=== PATIENT | female | born 1965 | race Caucasian/White ===

== ENCOUNTER 2017-03-14 13:51 | Inpatient (IN) | payer MEDICAID ==
[2017-03-14] VITALS (8 sets, daily range): BP systolic 104–148; BP diastolic 70–104
[~2017-03-14] VITALS: Ht 175.3 cm; Wt 95.3 kg
[~2017-03-14 13:51] MED LIST: BETASERON0.3 MG SQ; NEURONTIN300 MG PO; OXYCONTIN20 MG PO; SOMA350 MG PO; TRAMADOL HCL50 MG PO
[2017-03-14] MEDS ORDERED: ACETAMINOPHEN325 M1 ORAL (14:02)
[2017-03-14] MEDS ORDERED: TYLENOL650 MG PR (14:02)
[2017-03-14] MEDS ORDERED: AMBIEN10 M1 ORAL (14:02)
[2017-03-14] MEDS ORDERED: AMITRIPTYLINE100 MG ORAL (14:08)
[2017-03-14] MEDS ORDERED: ATROPINE SULFATE 1% SL (14:08)
[2017-03-14] MEDS ORDERED: CRANBERRY400 MG PO (14:19)
[2017-03-14] MEDS ORDERED: BISACODYL5 MG ORAL (14:19)
[2017-03-14] MEDS ORDERED: COLACE100 MG ORAL (14:19)
[2017-03-14] MEDS ORDERED: DUONEB 0.5-3(2.53 ML HHN (14:19)
[2017-03-14] MEDS ORDERED: DURAGESIC1 E1 TOPIC (14:20)
[2017-03-14] MEDS ORDERED: GABAPENTIN300 MG ORAL (14:20)
[2017-03-14] MEDS ORDERED: FLEET ENEMA133 ML RECTAL (14:20)
[2017-03-14] MEDS ORDERED: LORAZEPAM0.5 MG ORAL (14:21)
[2017-03-14] MEDS ORDERED: LACTULOSE20 GM/301 ORAL (14:21)
[2017-03-14] MEDS ORDERED: PRO-STAT LIQUID30 ML ORAL (14:23)
[2017-03-14] MEDS ORDERED: OXYCODONE HCL10 MG ORAL (14:23)
[2017-03-14] MEDS ORDERED: MILK OF MA400 MG/51 ORAL (14:23)
[2017-03-14] MEDS ORDERED: VITAMIN C500 M1 ORAL (14:24)
[2017-03-14] MEDS ORDERED: ZINC SULFATE220 M1 ORAL (14:24)
[2017-03-14] MEDS ORDERED: SENNA8.6 M2 PO (14:24)
[2017-03-14] MEDS ORDERED: ZOFRAN ODT4 MG ORAL (14:25)
[2017-03-14] MEDS ORDERED: Lidocaine 1% Plain 30 ml INJ ONE (15:00)
[2017-03-14] MEDS ORDERED: Heparin 2000 units/Ns 1000ml IV ONE (15:00)
--- NOTE | 2017-03-14 15:53 | Emergency Room Report ---
History of Present Illness General Chief Complaint: Abdominal Pain Source: Patient, Medical Record Present Illness HPI This patient presents from a half-way facility. She complains of left sided abdominal pain for the past 2 days. She states that she is also had multiple bowel movements. She denies that it is diarrhea. She denies dysuria. She has no other complaints. Allergies: Coded Allergies: SULFA (SULFONAMIDE ANTIBIOTICS) (Verified Allergy, Intermediate, 03/14/17) MORPHINE (Verified Adverse Reaction, Intermediate, GI UPSET AND SHAKES, 17/08) Uncoded Allergies: PAIN KILLER (Allergy, Mild, 06/17/12) CANNOT REMEMBER NAME OF PAIN KILLER Patient History Past Medical History: see triage record, GERD, psych hx, other - MS Social History: Denies: alcohol use, drug use, smoking Now: No Reviewed Nursing Documentation: PMH: Agreed, PSxH: Agreed Nursing Documentation-PMH Past Medical History Deferred: Pt Cognitively Impaired Past Medical History: No History, Except For Hx Cardiac Problems: No Hx Hypertension: No Hx Pacemaker: No Hx COPD: No Hx Diabetes: No Hx Cancer: No Hx Gastrointestinal Problems: Yes - Gastro - esophageal reflux Hx Neurological Problems: Yes - MS, Low Back pain Hx Cerebrovascular Accident: No Hx Seizures: No Review of Systems All Other Systems: negative except mentioned in HPI Physical Exam Vital Signs Date Time Temp Pulse Resp B/P Pulse Ox O2 Delivery O2 Flow Rate FiO2 03/14/17 13:39 97.9 78 16 128/70 98 Sp02 EP Interpretation: reviewed, normal General Appearance: no apparent distress, alert, GCS 15, non-toxic Head: normocephalic, atraumatic Eyes: bilateral eye PERRL, bilateral eye normal inspection ENT: hearing grossly normal, normal pharynx, no angioedema, normal voice Neck: full range of motion, supple/symm/no masses Respiratory: chest non-tender, lungs clear, normal breath sounds, speaking full sentences Cardiovascular #1: regular rate, rhythm, no edema Gastrointestinal: normal bowel sounds, soft, non-distended, no guarding, no rebound, tenderness - TTP diffusely LLQ greatest Rectal: deferred Musculoskeletal: back normal, gait/station normal, normal range of motion, non- tender Neurologic: alert, oriented x3, responsive, motor strength/tone normal, sensory intact, speech normal Psychiatric: judgement/insight normal, memory normal, mood/affect normal, no suicidal/homicidal ideation Skin: other - Sacral DU, see RN skin exam Medical Decision Making Diagnostic Impression: Primary Impression: Osteomyelitis Additional Impressions: Sacral decubitus ulcer UTI (urinary tract infection) ER Course This patient complained of abdominal pain. Therefore, I obtained a CT of the abdomen and pelvis which showed findings concerning for a sacral decubitus ulcer that had a. Into the sacrum and coccyx concerning for osteomyelitis. The patient also does not have a urinary tract infection. Patient was given broad-spectrum antibiotics and admitted for further evaluation and treatment. Labs Test 03/14/17 16:10 White Blood Count 13.8 K/UL (4.8-10.8) Red Blood Count 4.78 M/UL (4.20-5.40) Hemoglobin 12.7 G/DL (12.0-16.0) Hematocrit 40.0 % (37.0-47.0) Mean Corpuscular Volume 84 FL (80-99) Mean Corpuscular Hemoglobin 26.6 PG (27.0-31.0) Mean Corpuscular Hemoglobin Concent 31.8 G/DL (32.0-36.0) Red Cell Distribution Width 14.7 % (11.6-14.8) Platelet Count 442 K/UL (150-450) Mean Platelet Volume 6.1 FL (6.5-10.1) Neutrophils (%) (Auto) 77.1 % (45.0-75.0) Lymphocytes (%) (Auto) 13.6 % (20.0-45.0) Monocytes (%) (Auto) 6.3 % (1.0-10.0) Eosinophils (%) (Auto) 2.4 % (0.0-3.0) Basophils (%) (Auto) 0.6 % (0.0-2.0) Urine Color Pale yellow Urine Appearance Clear Urine pH 8 (4.5-8.0) Urine Specific [place] 1.015 (1.005-1.035) Urine Protein 1+ (NEGATIVE) Urine Glucose (UA) Negative (NEGATIVE) Urine Ketones 3+ (NEGATIVE) Urine Occult Blood 2+ (NEGATIVE) Urine Nitrite Positive (NEGATIVE) Urine Bilirubin Negative (NEGATIVE) Urine Urobilinogen Normal MG/DL (0.0-1.0) Urine Leukocyte Esterase 3+ (NEGATIVE) Urine RBC 2-4 /HPF (0 - 2) Urine WBC 5-10 /HPF (0 - 2) Urine Squamous Epithelial Cells Few /LPF (NONE/OCC) Urine Amorphous Sediment Few /LPF (NONE) Urine Bacteria Few /HPF (NONE) Sodium Level 139 mEQ/L (135-145) Potassium Level 4.0 mEQ/L (3.4-4.9) Chloride Level 101 mEQ/L (98-107) Carbon Dioxide Level 26 mEQ/L (20-30) Anion Gap 12 (5-15) Blood Urea Nitrogen 5 mg/dL (7-23) Creatinine 0.5 mg/dL (0.5-0.9) Estimat Glomerular Filtration Rate > 60 mL/min (>60) Glucose Level 98 mg/dL (74-106) Calcium Level 9.0 mg/dL (8.6-10.2) Total Bilirubin 0.2 mg/dL (0.0-1.2) Aspartate Amino Transf (AST/SGOT) 9 U/L (5-40) Alanine Aminotransferase (ALT/SGPT) 6 U/L (3-33) Alkaline Phosphatase 115 U/L (35-104) Total Protein 7.0 g/dL (6.6-8.7) Albumin 3.3 g/dL (3.5-5.2) Globulin 3.7 g/dL Albumin/Globulin Ratio 0.8 (1.0-2.7) Lipase 11 U/L (< 60) CT/MRI/US Diagnostic Results CT/MRI/US Diagnostic Results : Imaging Test Ordered: CT abd/pelvis Impression See official report. Findings concerning for osteomyelitis of the sacrum and coccyx. Last Vital Signs Date Time Temp Pulse Resp B/P Pulse Ox O2 Delivery O2 Flow Rate FiO2 03/14/17 13:54 97.9 78 16 128/70 98 Disposition: ADMITTED INPATIENT Condition: Serious Referrals: NON PHYSICIAN (PCP) OPAL LOERA D.O. Mar 14, 2017 15:53
--- NOTE | 2017-03-14 16:21 | Diagnostic Imaging Report ---
Indications: Needs long-term IV access Technique: Ultrasound confirms patent compressible right basilic vein. Total sterile technique, including sterile probe cover and sterile gel, hat, mask,, sterile gown, large sterile drape, and preparation with 2% chlorhexidine utilized. Local anesthesia with 1% lidocaine. Under real-time ultrasound guidance, puncture basilic vein using 21-gauge needle, documented and archived, passage 0.018 guidewire under direct fluoroscopy, which was used to determine appropriate catheter right arm length, exchange for 5 Welsh peel-away sheath. 5 Welsh Bard dual-lumen power PICC cut to 41 cm. It was inserted through the peel-away sheath. Peel-away sheath and guidewire removed. Catheter fixed to the skin. Both catheter ports aspirated and flushed. Patient tolerated procedure well, without immediate complication. Digital radiograph documents satisfactory catheter tip position, at the cavoatrial junction. Total fluoroscopy time 0.3 minutes. Total dose area product 8.7 dGycm2 Impression: Successful placement of right arm PICC under sonographic and fluoroscopic guidance, as described above.
[2017-03-14 16:39] LABS: APPEARANCE,URINE CLEAR; KETONES,URINE 3+ (NEGATIVE); LEUKOCYTE ESTERASE ,URINE 3+ (NEGATIVE); NITRITE,URINE POSITIVE (NEGATIVE); PH,URINE 8 (4.5-8.0); PROTEIN,URINE 1+ (NEGATIVE); UROBILINOGEN,URINE NORMAL MG/DL (0.0-1.0)
[2017-03-14 16:46] LABS: BASOPHILS % (AUTO) 0.6 % (0.0-2.0); EOSINOPHILS % (AUTO) 2.4 % (0.0-3.0); LYMPHOCYTES % (AUTO) 13.6 % (20.0-45.0); MEAN CORPUSCULAR HEMOGLOBIN 26.6 PG (27.0-31.0); MEAN CORPUSCULAR HGB CONC 31.8 G/DL (32.0-36.0); MEAN CORPUSCULAR VOLUME 84 FL (80-99); MEAN PLATELET VOLUME 6.1 FL (6.5-10.1); MONOCYTES % (AUTO) 6.3 % (1.0-10.0); NEUTROPHILS % (AUTO) 77.1 % (45.0-75.0); PLATELET COUNT 442 K/UL (150-450); RED BLOOD COUNT 4.78 M/UL (4.20-5.40); RED CELL DISTRIBUTION WIDTH 14.7 % (11.6-14.8); WHITE BLOOD COUNT 13.8 K/UL (4.8-10.8)
[2017-03-14 16:55] LABS: ALANINE AMINOTRANSFERASE 6 U/L (3-33); ALBUMIN/GLOBULIN RATIO 0.8 (1.0-2.7); ANION GAP 12 (5-15); ASPARTATE AMINO TRANSFERASE 9 U/L (5-40); CARBON DIOXIDE 26 mEQ/L (20-30); CHLORIDE 101 mEQ/L (98-107); CREATININE 0.5 mg/dL (0.5-0.9); GLOMERULAR FILTRATION RATE > 60 mL/min (>60); HEMOLYSIS 0; LIPASE 11 U/L (< 60); SODIUM 139 mEQ/L (135-145)
[2017-03-14 17:00] LABS: AMORPHOUS SEDIMENT,UR FEW /LPF; BACTERIA,URINE FEW /HPF; SQUAMOUS EPITHELIAL CELL,UR FEW /LPF (NONE/OCC)
[2017-03-14] MEDS ORDERED: cefTRIAXone 1 GM in NS 55 ML IVPB ONE (17:45)
[2017-03-14] MEDS ORDERED: Acetaminophen 500mg (ES) tab ORAL ONE (18:00)
[2017-03-14] MEDS ORDERED: Vancomycin 1gm inj IVPB ONE (18:22)
[2017-03-14] MEDS ORDERED: Vancomycin 1 GM in NS 275 ML IVPB ONE (18:30)
[2017-03-14] MEDS ORDERED: Nitroglycerin Subl 0.4mg tab (Bottle Of 25) SL PRN (19:30)
[2017-03-14] MEDS ORDERED: DuoNeb 0.5-3(2.5)mg/3ml neb HHN PRN (19:30)
[2017-03-14] MEDS ORDERED: Miralax 17gm pkt ORAL PRN (19:30)
[2017-03-14] MEDS ORDERED: traMADol 50mg tab ORAL SCH (19:30)
[2017-03-14] MEDS ORDERED: LORazepam 0.5mg tab ORAL PRN (20:30)
[2017-03-14] MEDS ORDERED: Naloxone 0.4mg/ml Inj IV PRN (22:00)
[2017-03-14] MEDS: Heparin 5000 units/ml inj SUBQ SCH (22:15)
--- NOTE | 2017-03-14 23:42 | History and Physical ---
History of Present Illness General Date patient seen: Mar 14, 2017 Reason for Hospitalization: Abdominal Pain Present Illness HPI 51 year old female with hx of multiple sclerosis for 7 years, [facility], [facility], presented with CC of of left sided abdominal pain for the past 2 days. She states that she is also had multiple bowel movements. She denies that it is diarrhea. She denies dysuria. She has no other complaints. She was found to have extensive decubiti ulcers and possibly be septic. Allergies: Coded Allergies: SULFA (SULFONAMIDE ANTIBIOTICS) (Verified Allergy, Intermediate, 03/14/17) MORPHINE (Verified Adverse Reaction, Intermediate, GI UPSET AND SHAKES, 17/08) Uncoded Allergies: PAIN KILLER (Allergy, Mild, 06/17/12) CANNOT REMEMBER NAME OF PAIN KILLER Medication History Scheduled Amino Acids/Protein Hydrolys (Pro-Stat Liquid), 30 ML ORAL DAILY, (Reported) Amitriptyline HCl (Amitriptyline HCl), 50 MG ORAL BEDTIME, (Reported) Ascorbic Acid* (Vitamin C*), 500 MG ORAL DAILY, (Reported) Carisoprodol* (Soma*), 350 MG PO BID, (Reported) Cranberry (Cranberry), 450 MG PO DAILY, (Reported) Docusate Sodium* (Colace*), 250 MG ORAL TWICE A DAY, (Reported) Fentanyl (Fentanyl), 1 PATCH TOPIC EVERY 72 HOURS, (Reported) Gabapentin (Neurontin), 300 MG PO TID, (Reported) Gabapentin* (Gabapentin*), 300 MG ORAL THREE TIMES A DAY, (Reported) Interferon Beta-1B (Betaseron), MG SQ QOD, (Reported) Lactulose (Lactulose*), 30 ML ORAL DAILY, (Reported) Oxycodone Hcl Er* (Oxycontin*), 20 MG PO QID, (Reported) Sennosides (Senna), 8.6 MG PO BID, (Reported) Tramadol Hcl* (Ultram*), 50 MG PO Q6H, (Reported) Zinc Sulfate (Zinc Sulfate*), 220 MG ORAL DAILY, (Reported) Scheduled PRN Acetaminophen (Acetaminophen), 650 MG OK Q4HR PRN for Fever/Headache/Mild Pain, (Reported) Acetaminophen* (Acetaminophen 325MG Tablet*), 650 MG ORAL Q8HR PRN for Pain Scale (3-5), (Reported) Bisacodyl* (Dulcolax*), 10 MG ORAL EVERY 24 HOUR PRN for Constipation, (Reported ) Ipratropium/Albuterol Sulfate (DuoNeb 0.5-3(2.5)mg/3ml), 3 ML HHN EVERY 6 HOURS PRN for Shortness of Breath, (Reported) Lorazepam* (Lorazepam*), 0.5 MG ORAL EVERY 6 HOURS PRN for For Anxiety, ( Reported) Magnesium Hydroxide* (Milk Of Magnesia*), 30 ML ORAL DAILY PRN for Constipation, (Reported) Na Phos,M-B/Na Phos,Di-Ba* (Fleet Enema*), 133 ML RECTAL DAILY PRN for CONSTIPATION, (Reported) Ondansetron Odt* (Zofran Odt*), 4 MG ORAL Q6H PRN for Nausea & Vomiting, ( Reported) Oxycodone Hcl* (Oxycodone Hcl*), 20 MG ORAL Q6HR PRN for For Pain, (Reported) Zolpidem Tartrate* (Ambien*), 10 MG ORAL HS PRN for Insomnia, (Reported) [Atropine sulfate 1%], 2 DROP SL EVERY 3 HOURS PRN for Mild to moderate , ( Reported) Patient History Healthcare decision maker Resuscitation status Full Code Advanced Directive on File Past Medical/Surgical History Past Medical/Surgical History: (1) Sacral decubitus ulcer (2) Osteomyelitis Review of Systems All Other Systems: negative except mentioned in HPI Physical Exam General Appearance: WD/WN, no apparent distress Lines, tubes and drains: peripheral, central line HEENT: normocephalic, atraumatic Neck: non-tender, normal alignment Respiratory/Chest: chest wall non-tender, lungs clear Breasts: no masses Cardiovascular/Chest: normal peripheral pulses Abdomen: normal bowel sounds Genitourinary/Rectal: normal genital exam Extremities: normal range of motion Last 24 Hour Vital Signs Date Time Temp Pulse Resp B/P Pulse Ox O2 Delivery O2 Flow Rate FiO2 03/14/17 23:36 97.7 98 19 119/85 98 Room Air 03/14/17 22:50 97.7 03/14/17 21:26 97.7 94 20 104/71 100 Room Air 03/14/17 20:02 97.9 87 18 131/77 96 Room Air 03/14/17 19:30 87 18 131/77 96 Room Air 03/14/17 18:38 97.9 03/14/17 18:30 87 18 130/75 96 Room Air 03/14/17 17:30 98 15 124/104 94 Room Air 03/14/17 16:30 97 17 148/71 99 Room Air 03/14/17 14:30 88 18 111/85 97 Room Air 03/14/17 13:54 97.9 78 16 128/70 98 03/14/17 13:39 97.9 78 16 128/70 98 Laboratory Tests Test 03/14/17 16:10 White Blood Count 13.8 K/UL (4.8-10.8) H Red Blood Count 4.78 M/UL (4.20-5.40) Hemoglobin 12.7 G/DL (12.0-16.0) Hematocrit 40.0 % (37.0-47.0) Mean Corpuscular Volume 84 FL (80-99) Mean Corpuscular Hemoglobin 26.6 PG (27.0-31.0) L Mean Corpuscular Hemoglobin Concent 31.8 G/DL (32.0-36.0) L Red Cell Distribution Width 14.7 % (11.6-14.8) Platelet Count 442 K/UL (150-450) Mean Platelet Volume 6.1 FL (6.5-10.1) L Neutrophils (%) (Auto) 77.1 % (45.0-75.0) H Lymphocytes (%) (Auto) 13.6 % (20.0-45.0) L Monocytes (%) (Auto) 6.3 % (1.0-10.0) Eosinophils (%) (Auto) 2.4 % (0.0-3.0) Basophils (%) (Auto) 0.6 % (0.0-2.0) Urine Color Pale yellow Urine Appearance Clear Urine pH 8 (4.5-8.0) Urine Specific [place] 1.015 (1.005-1.035) Urine Protein 1+ (NEGATIVE) H Urine Glucose (UA) Negative (NEGATIVE) Urine Ketones 3+ (NEGATIVE) H Urine Occult Blood 2+ (NEGATIVE) H Urine Nitrite Positive (NEGATIVE) H Urine Bilirubin Negative (NEGATIVE) Urine Urobilinogen Normal MG/DL (0.0-1.0) Urine Leukocyte Esterase 3+ (NEGATIVE) H Urine RBC 2-4 /HPF (0 - 2) H Urine WBC 5-10 /HPF (0 - 2) H Urine Squamous Epithelial Cells Few /LPF (NONE/OCC) Urine Amorphous Sediment Few /LPF (NONE) H Urine Bacteria Few /HPF (NONE) Sodium Level 139 mEQ/L (135-145) Potassium Level 4.0 mEQ/L (3.4-4.9) Chloride Level 101 mEQ/L (98-107) Carbon Dioxide Level 26 mEQ/L (20-30) Anion Gap 12 (5-15) Blood Urea Nitrogen 5 mg/dL (7-23) L Creatinine 0.5 mg/dL (0.5-0.9) Estimat Glomerular Filtration Rate > 60 mL/min (>60) Glucose Level 98 mg/dL (74-106) Calcium Level 9.0 mg/dL (8.6-10.2) Total Bilirubin 0.2 mg/dL (0.0-1.2) Aspartate Amino Transf (AST/SGOT) 9 U/L (5-40) Alanine Aminotransferase (ALT/SGPT) 6 U/L (3-33) Alkaline Phosphatase 115 U/L (35-104) H Total Protein 7.0 g/dL (6.6-8.7) Albumin 3.3 g/dL (3.5-5.2) L Globulin 3.7 g/dL Albumin/Globulin Ratio 0.8 (1.0-2.7) L Lipase 11 U/L (< 60) Height (Feet): 5 Height (Inches): 9.00 Weight (Pounds): 210 Medications Current Medications Medications (Trade) Dose Ordered Sig/Tatiana Route PRN Reason Start Time Stop Time Status Last Admin Dose Admin Acetaminophen (Tylenol) 650 mg Q4H PRN ORAL fever 03/14/17 19:30 04/13/17 19:29 Albuterol/ Ipratropium (DuoNeb 0.5-3(2.5)mg/3ml) 3 ml Q4H PRN HHN Shortness of Breath 03/14/17 19:30 03/19/17 19:29 Amitriptyline HCl (Elavil) 50 mg BEDTIME ORAL 03/14/17 21:00 04/13/17 20:59 03/14/17 22:14 Cefepime HCl/ Dextrose (Maxipime/D5W) 110 ml @ 220 mls/hr Q12H IV 03/15/17 06:00 03/22/17 05:59 Chlorhexidine Gluconate (Tamy-Hex 2%) 1 applic DAILY TOPIC 03/15/17 09:00 04/14/17 08:59 Dextrose (Dextrose 50%) STAT PRN IV Hypoglycemia 03/14/17 19:30 04/13/17 19:29 Fentanyl (Duragesic) 1 patch Q72H TDERMAL 03/14/17 22:00 03/21/17 21:59 03/14/17 22:20 Gabapentin (Neurontin) 300 mg TID ORAL 03/14/17 21:00 04/13/17 20:59 03/14/17 22:14 Heparin Sodium (Porcine) 5000 units 5,000 units EVERY 12 HOURS SUBQ 03/14/17 21:00 04/13/17 20:59 03/14/17 22:15 Lorazepam (Ativan) 0.5 mg Q6H PRN ORAL For Anxiety 03/14/17 20:30 03/21/17 20:29 Miscellaneous Medication 1 ea 1 ea Q72H MISC 03/17/17 22:00 03/21/17 21:59 Naloxone HCl (Narcan) 0.1 mg PRN IV Sedation scale 3 or 4 03/14/17 22:00 03/21/17 21:59 Nitroglycerin (Ntg) 0.4 mg Q5MIN PRN SL Prn Chest Pain 03/14/17 19:30 04/13/17 19:29 Ondansetron HCl (Zofran) 4 mg Q6H PRN IVP Nausea & Vomiting 03/14/17 19:30 04/13/17 19:29 Oxycodone HCl (Roxicodone) 20 mg Q6H PRN ORAL For Breakthrough Pain 03/14/17 19:30 03/21/17 19:29 Polyethylene Glycol (Miralax) 17 gm DAILYPRN PRN ORAL Constipation 03/14/17 19:30 04/13/17 19:29 Temazepam (Restoril) 15 mg HSPRN PRN ORAL Insomnia 03/14/17 19:30 03/21/17 19:29 Vancomycin HCl (Vanco rx to dose) 1 ea DAILY PRN MISC PRN RX PROTOCOL 03/14/17 22:00 04/13/17 21:59 Vancomycin HCl/ Dextrose (Vancomycin 1250mg/D5W 250ml) 250 ml @ 166.667 mls/hr Q8HR@0200,1000,1800 IVPB 03/15/17 02:00 03/20/17 01:59 Assessment/Plan Problem List: (1) Cellulitis ICD Codes: L03.90 - Cellulitis, unspecified SNOMED: 585236271 (2) UTI (urinary tract infection) ICD Codes: N39.0 - Urinary tract infection, site not specified SNOMED: 83354695 (3) Osteomyelitis ICD Codes: M86.9 - Osteomyelitis, unspecified SNOMED: 75485340 (4) Sacral decubitus ulcer ICD Codes: L89.159 - Pressure ulcer of sacral region, unspecified stage SNOMED: 127621150 Assessment/Plan iv antibiotics check cultures wound care surgical evaluation NIKIA CAMPBELL Mar 14, 2017 23:42
[2017-03-15] MEDS ORDERED: Vancomycin 1 GM in D5W 275 ML IV SCH (00:30)
[2017-03-15] MEDS: Vancomycin 1250mg/D5W 250ml IVPB SCH ×3 (01:02→20:36)
[2017-03-15 03:20] VITALS: BP 109/71
[2017-03-15 04:56] LABS: BASOPHILS % (AUTO) 0.7 % (0.0-2.0); EOSINOPHILS % (AUTO) 3.7 % (0.0-3.0); LYMPHOCYTES % (AUTO) 20.8 % (20.0-45.0); MEAN CORPUSCULAR HEMOGLOBIN 26.6 PG (27.0-31.0); MEAN CORPUSCULAR HGB CONC 32.5 G/DL (32.0-36.0); MEAN CORPUSCULAR VOLUME 82 FL (80-99); MEAN PLATELET VOLUME 5.8 FL (6.5-10.1); MONOCYTES % (AUTO) 7.3 % (1.0-10.0); NEUTROPHILS % (AUTO) 67.5 % (45.0-75.0); PLATELET COUNT 425 K/UL (150-450); RED BLOOD COUNT 4.49 M/UL (4.20-5.40); RED CELL DISTRIBUTION WIDTH 14.3 % (11.6-14.8); WHITE BLOOD COUNT 10.4 K/UL (4.8-10.8)
[2017-03-15 05:00] LABS: ALANINE AMINOTRANSFERASE 5 U/L (3-33); ALBUMIN/GLOBULIN RATIO 0.7 (1.0-2.7); ANION GAP 12 (5-15); ASPARTATE AMINO TRANSFERASE 8 U/L (5-40); CALCIUM 7.2 mg/dL (8.6-10.2); CARBON DIOXIDE 21 mEQ/L (20-30); CHLORIDE 109 mEQ/L (98-107); CREATININE 0.3 mg/dL (0.5-0.9); GLOMERULAR FILTRATION RATE > 60 mL/min (>60); HEMOLYSIS 0; POTASSIUM 3.3 mEQ/L (3.4-4.9); SODIUM 142 mEQ/L (135-145); TOTAL PROTEIN 5.7 g/dL (6.6-8.7)
[2017-03-15] MEDS: Cefepime HCl 2 GM in D5W 110 ML IV SCH ×2 (05:01→18:38)
[2017-03-15 08:15] VITALS: BP 109/66
[2017-03-15] MEDS: Dyna-Hex 2% Top Sol 8oz TOPIC SCH (08:53)
[2017-03-15] MEDS: Heparin 5000 units/ml inj SUBQ SCH (08:55)
[2017-03-15] MEDS: oxyCODONE 5mg IR tab ORAL PRN ×2 (09:18→19:44)
--- NOTE | 2017-03-15 09:24 | Diagnostic Imaging Report ---
Clinical Indication: Abdominal pain Technique: No oral contrast utilized, per emergency room physician request IV administration nonionic contrast. Venous phase spiral acquisition obtained through the abdomen and pelvis. Multiplanar reconstructions were generated. Total dose length product 994 mGycm. CTDIvol(s) 19 mGy. Dose reduction achieved using automated exposure control Comparison: 19 Findings: The appendix is normal. The no evidence of diverticulosis or diverticulitis. No small bowel distention. No free or loculated intraperitoneal air or fluid. Distal esophagus, stomach, duodenum are unremarkable. There are decubitus changes of the retrocecal region, with a large ulcer present. There is considerable soft tissue thickening. There is suggestion of bony destruction of the sacrococcygeal junction. Gallbladder is surgically absent. The liver, bile ducts, pancreas, spleen, adrenals, right kidney are unremarkable. The left kidney demonstrates a subcentimeter low-attenuation lesion which is too small to characterize. No pelvic mass or adenopathy. There is a Ramirez catheter within the bladder, which is nondistended. Air within the bladder is likely related to the Ramirez catheterization. The included lung bases are clear. The bones demonstrate degenerative spondylosis changes, in addition to the above-described abnormalities. Impression: Findings consistent with decubitus ulceration of the retrosacral region. Evidence of bone destruction in the sacrococcygeal junction is suspicious for osteomyelitis. Consider MRI for further evaluation No acute intra-abdominal findings Evidence of prior cholecystectomy Subcentimeter left renal low-attenuation lesion, too small to characterize, most likely benign simple cyst. No further followup needed Other findings as noted, including Ramirez catheter, degenerative spondylosis This agrees with the preliminary interpretation provided overnight by Dr. Bonds The CT scanner at [facility] is accredited by the [employer] [place] and the scans are performed using protocols designed to limit radiation exposure to as low as reasonably achievable to attain images of sufficient resolution adequate for diagnostic evaluation.
[2017-03-15 11:54] VITALS: BP 123/89
--- NOTE | 2017-03-15 12:17 | Infectious Diseases Prog Note ---
Assessment/Plan Assessment/Plan ID consult dictated # [id number] Subjective Allergies: Coded Allergies: SULFA (SULFONAMIDE ANTIBIOTICS) (Verified Allergy, Intermediate, 03/14/17) MORPHINE (Verified Adverse Reaction, Intermediate, GI UPSET AND SHAKES, 17/08) Uncoded Allergies: PAIN KILLER (Allergy, Mild, 06/17/12) CANNOT REMEMBER NAME OF PAIN KILLER Objective Vital Signs Last 24 Hour Vital Signs Date Time Temp Pulse Resp B/P Pulse Ox O2 Delivery O2 Flow Rate FiO2 03/15/17 11:54 97.4 83 20 123/89 97 Room Air 03/15/17 08:15 97.9 98 20 109/66 97 Room Air 03/15/17 07:44 93 18 Room Air 21 03/15/17 03:20 96.3 108 20 109/71 98 Room Air 03/14/17 23:36 97.7 98 19 119/85 98 Room Air 03/14/17 22:50 97.7 03/14/17 21:26 97.7 94 20 104/71 100 Room Air 03/14/17 20:02 97.9 87 18 131/77 96 Room Air 03/14/17 19:30 87 18 131/77 96 Room Air 03/14/17 18:38 97.9 03/14/17 18:30 87 18 130/75 96 Room Air 03/14/17 17:30 98 15 124/104 94 Room Air 03/14/17 16:30 97 17 148/71 99 Room Air 03/14/17 14:30 88 18 111/85 97 Room Air 03/14/17 13:54 97.9 78 16 128/70 98 03/14/17 13:39 97.9 78 16 128/70 98 Height (Feet): 5 Height (Inches): 9.00 Weight (Pounds): 210 Laboratory Tests Test 03/14/17 16:10 03/15/17 04:00 White Blood Count 13.8 K/UL (4.8-10.8) H 10.4 K/UL (4.8-10.8) Red Blood Count 4.78 M/UL (4.20-5.40) 4.49 M/UL (4.20-5.40) Hemoglobin 12.7 G/DL (12.0-16.0) 12.0 G/DL (12.0-16.0) Hematocrit 40.0 % (37.0-47.0) 36.9 % (37.0-47.0) L Mean Corpuscular Volume 84 FL (80-99) 82 FL (80-99) Mean Corpuscular Hemoglobin 26.6 PG (27.0-31.0) L 26.6 PG (27.0-31.0) L Mean Corpuscular Hemoglobin Concent 31.8 G/DL (32.0-36.0) L 32.5 G/DL (32.0-36.0) Red Cell Distribution Width 14.7 % (11.6-14.8) 14.3 % (11.6-14.8) Platelet Count 442 K/UL (150-450) 425 K/UL (150-450) Mean Platelet Volume 6.1 FL (6.5-10.1) L 5.8 FL (6.5-10.1) L Neutrophils (%) (Auto) 77.1 % (45.0-75.0) H 67.5 % (45.0-75.0) Lymphocytes (%) (Auto) 13.6 % (20.0-45.0) L 20.8 % (20.0-45.0) Monocytes (%) (Auto) 6.3 % (1.0-10.0) 7.3 % (1.0-10.0) Eosinophils (%) (Auto) 2.4 % (0.0-3.0) 3.7 % (0.0-3.0) H Basophils (%) (Auto) 0.6 % (0.0-2.0) 0.7 % (0.0-2.0) Urine Color Pale yellow Urine Appearance Clear Urine pH 8 (4.5-8.0) Urine Specific [place] 1.015 (1.005-1.035) Urine Protein 1+ (NEGATIVE) H Urine Glucose (UA) Negative (NEGATIVE) Urine Ketones 3+ (NEGATIVE) H Urine Occult Blood 2+ (NEGATIVE) H Urine Nitrite Positive (NEGATIVE) H Urine Bilirubin Negative (NEGATIVE) Urine Urobilinogen Normal MG/DL (0.0-1.0) Urine Leukocyte Esterase 3+ (NEGATIVE) H Urine RBC 2-4 /HPF (0 - 2) H Urine WBC 5-10 /HPF (0 - 2) H Urine Squamous Epithelial Cells Few /LPF (NONE/OCC) Urine Amorphous Sediment Few /LPF (NONE) H Urine Bacteria Few /HPF (NONE) Sodium Level 139 mEQ/L (135-145) 142 mEQ/L (135-145) Potassium Level 4.0 mEQ/L (3.4-4.9) 3.3 mEQ/L (3.4-4.9) L Chloride Level 101 mEQ/L (98-107) 109 mEQ/L (98-107) H Carbon Dioxide Level 26 mEQ/L (20-30) 21 mEQ/L (20-30) Anion Gap 12 (5-15) 12 (5-15) Blood Urea Nitrogen 5 mg/dL (7-23) L 4 mg/dL (7-23) L Creatinine 0.5 mg/dL (0.5-0.9) 0.3 mg/dL (0.5-0.9) L Estimat Glomerular Filtration Rate > 60 mL/min (>60) > 60 mL/min (>60) Glucose Level 98 mg/dL (74-106) 93 mg/dL (74-106) Calcium Level 9.0 mg/dL (8.6-10.2) 7.2 mg/dL (8.6-10.2) L Total Bilirubin 0.2 mg/dL (0.0-1.2) 0.2 mg/dL (0.0-1.2) Aspartate Amino Transf (AST/SGOT) 9 U/L (5-40) 8 U/L (5-40) Alanine Aminotransferase (ALT/SGPT) 6 U/L (3-33) 5 U/L (3-33) Alkaline Phosphatase 115 U/L (35-104) H 93 U/L (35-104) Total Protein 7.0 g/dL (6.6-8.7) 5.7 g/dL (6.6-8.7) L Albumin 3.3 g/dL (3.5-5.2) L 2.5 g/dL (3.5-5.2) L Globulin 3.7 g/dL 3.2 g/dL Albumin/Globulin Ratio 0.8 (1.0-2.7) L 0.7 (1.0-2.7) L Lipase 11 U/L (< 60) Current Medications Medications (Trade) Dose Ordered Sig/Tatiana Route PRN Reason Start Time Stop Time Status Last Admin Dose Admin Acetaminophen (Tylenol) 650 mg Q4H PRN ORAL fever 03/14/17 19:30 04/13/17 19:29 03/15/17 05:07 Albuterol/ Ipratropium (DuoNeb 0.5-3(2.5)mg/3ml) 3 ml Q4H PRN HHN Shortness of Breath 03/14/17 19:30 03/19/17 19:29 Amitriptyline HCl (Elavil) 50 mg BEDTIME ORAL 03/14/17 21:00 04/13/17 20:59 03/14/17 22:14 Cefepime HCl/ Dextrose (Maxipime/D5W) 110 ml @ 220 mls/hr Q12H IV 03/15/17 06:00 03/22/17 05:59 03/15/17 05:01 Chlorhexidine Gluconate (Tamy-Hex 2%) 1 applic DAILY TOPIC 03/15/17 09:00 04/14/17 08:59 03/15/17 08:53 Dextrose (Dextrose 50%) STAT PRN IV Hypoglycemia 03/14/17 19:30 04/13/17 19:29 Fentanyl (Duragesic) 1 patch Q72H TDERMAL 03/14/17 22:00 03/21/17 21:59 03/14/17 22:20 Gabapentin (Neurontin) 300 mg TID ORAL 03/14/17 21:00 04/13/17 20:59 03/15/17 08:53 Heparin Sodium (Porcine) 5000 units 5,000 units EVERY 12 HOURS SUBQ 03/14/17 21:00 04/13/17 20:59 03/15/17 08:55 Lorazepam (Ativan) 0.5 mg Q6H PRN ORAL For Anxiety 03/14/17 20:30 03/21/17 20:29 Miscellaneous Medication 1 ea 1 ea Q72H MISC 03/17/17 22:00 03/21/17 21:59 Naloxone HCl (Narcan) 0.1 mg PRN IV Sedation scale 3 or 4 03/14/17 22:00 03/21/17 21:59 Nitroglycerin (Ntg) 0.4 mg Q5MIN PRN SL Prn Chest Pain 03/14/17 19:30 04/13/17 19:29 Ondansetron HCl (Zofran) 4 mg Q6H PRN IVP Nausea & Vomiting 03/14/17 19:30 04/13/17 19:29 Oxycodone HCl (Roxicodone) 20 mg Q6H PRN ORAL For Breakthrough Pain 03/14/17 19:30 03/21/17 19:29 03/15/17 09:18 Polyethylene Glycol (Miralax) 17 gm DAILYPRN PRN ORAL Constipation 03/14/17 19:30 04/13/17 19:29 Temazepam (Restoril) 15 mg HSPRN PRN ORAL Insomnia 03/14/17 19:30 03/21/17 19:29 Vancomycin HCl (Vanco rx to dose) 1 ea DAILY PRN MISC PRN RX PROTOCOL 03/14/17 22:00 04/13/17 21:59 Vancomycin HCl/ Dextrose (Vancomycin 1250mg/D5W 250ml) 250 ml @ 166.667 mls/hr Q8HR@0200,1000,1800 IVPB 03/15/17 02:00 03/20/17 01:59 03/15/17 11:36 ASAEL APARICIO Mar 15, 2017 12:17
--- NOTE | 2017-03-15 14:16 | Diagnostic Imaging Report ---
APPROVED REPORT CPT Code: 18528 Present Symptoms Lower Extremity Pain: Bilateral Comments: Limited compression tolerated due to pain. RIGHT LEG: Venous imaging reveals a patent deep venous system. There is no evidence of thrombus within the femoral, popliteal or tibial segments. The greater saphenous vein is also within normal limits. Doppler indicates normal spontaneous flow within these segments. LEFT LEG: Venous imaging reveals acute thrombus in the superficial femoral to popliteal veins. Imaging also reveals patency of the common femoral vein. The calf veins were not well visualized. The greater saphenous vein is also within normal limits. Doppler indicates normal spontaneous flow within these segments. RN was notified of abnormal results at 1030 hours.
--- NOTE | 2017-03-15 15:41 | Wound Care Consultation ---
Wound Assessment Wound Assessment : Wound Number: #1 Wound Present on Admission: Yes New Wound: No Status Change of Wound: No Wound Location Body Site Modif: mid Wound Location Body Site: sacral Wound Type: pressure ulcer Ishan Test: Does not Ishan Pressure Ulcer Stage: IV/unstageable Wound Thickness: Full Thickness Wound Length: 4.5 Wound Width: 6.5 Wound Depth: 2.5 Percent of Wound [place]/Red: 100 Wound Drainage Description: Serosanguineous Wound Drainage Amount: Copious Wound Drainage Odor: None/Absent Tissue Surrounding Wound: Macerated Wound General Appearance: Reddened, Draining, Bone Palpable Wound Comment #1 Sacral stage IV pressure ulcer #2 Left dorsal foot foot Hyperpigmented skin and dry scab Recommendation -Sacral stage IV pressure ulcer Cleanse with saline, pat dry, apply hydrogel to wound bed, apply calcium alginate, cover with Biatain silicone dressing daily and PRN soiled/dislodged -Keep clean and dry -Turn and reposition -Low air loss mattress -Optimize nutrition -Offload both heels -Heel protector on both heels -Assess and f/u accordingly for any changes ASHELY POTTS RN Mar 15, 2017 15:41
--- NOTE | 2017-03-15 16:06 | Pulmonology Progress Note ---
Assessment/Plan Problems: (1) Cellulitis (2) UTI (urinary tract infection) (3) Osteomyelitis (4) Sacral decubitus ulcer Assessment/Plan improving continue abx check cultures dvt, will start on heparin drip and coumadin Subjective ROS Limited/Unobtainable: No Constitutional: Reports: no symptoms HEENT: Repors: no symptoms Respiratory: Reports: no symptoms Cardiovascular: Reports: no symptoms Allergies: Coded Allergies: SULFA (SULFONAMIDE ANTIBIOTICS) (Verified Allergy, Intermediate, 03/14/17) MORPHINE (Verified Adverse Reaction, Intermediate, GI UPSET AND SHAKES, 17/08) Uncoded Allergies: PAIN KILLER (Allergy, Mild, 06/17/12) CANNOT REMEMBER NAME OF PAIN KILLER Objective Last 24 Hour Vital Signs Date Time Temp Pulse Resp B/P Pulse Ox O2 Delivery O2 Flow Rate FiO2 03/15/17 11:54 97.4 83 20 123/89 97 Room Air 03/15/17 08:15 97.9 98 20 109/66 97 Room Air 03/15/17 07:44 93 18 Room Air 21 03/15/17 03:20 96.3 108 20 109/71 98 Room Air 03/14/17 23:36 97.7 98 19 119/85 98 Room Air 03/14/17 22:50 97.7 03/14/17 21:26 97.7 94 20 104/71 100 Room Air 03/14/17 20:02 97.9 87 18 131/77 96 Room Air 03/14/17 19:30 87 18 131/77 96 Room Air 03/14/17 18:38 97.9 03/14/17 18:30 87 18 130/75 96 Room Air 03/14/17 17:30 98 15 124/104 94 Room Air 03/14/17 16:30 97 17 148/71 99 Room Air Intake and Output 03/14/17 03/15/17 19:00 07:00 Intake Total 1055 ml 325 ml Output Total 1700 ml Balance 1055 ml -1375 ml Intake Oral 50 ml IV Total 1055 ml 275 ml Output Urine Total 1700 ml General Appearance: WD/WN, no acute distress HEENT: atraumatic Respiratory/Chest: chest wall non-tender, lungs clear Breasts: no masses Cardiovascular: normal peripheral pulses Abdomen: normal bowel sounds, soft, non tender Genitourinary: normal external genitalia Extremities: no cyanosis Skin: no rash Laboratory Tests 03/14/17 16:10: White Blood Count 13.8H, Red Blood Count 4.78, Hemoglobin 12.7, Hematocrit 40.0 , Mean Corpuscular Volume 84, Mean Corpuscular Hemoglobin 26.6L, Mean Corpuscular Hemoglobin Concent 31.8L, Red Cell Distribution Width 14.7, Platelet Count 442, Mean Platelet Volume 6.1L, Neutrophils (%) (Auto) 77.1H, Lymphocytes (%) (Auto) 13.6L, Monocytes (%) (Auto) 6.3, Eosinophils (%) (Auto) 2.4, Basophils (%) (Auto) 0.6, Urine Color Pale yellow, Urine Appearance Clear, Urine pH 8, Urine Specific [place] 1.015, Urine Protein 1+H, Urine Glucose (UA) Negative, Urine Ketones 3+H, Urine Occult Blood 2+H, Urine Nitrite PositiveH, Urine Bilirubin Negative, Urine Urobilinogen Normal, Urine Leukocyte Esterase 3+ H, Urine RBC 2-4H, Urine WBC 5-10H, Urine Squamous Epithelial Cells Few, Urine Amorphous Sediment FewH, Urine Bacteria Few, Sodium Level 139, Potassium Level 4.0, Chloride Level 101, Carbon Dioxide Level 26, Anion Gap 12, Blood Urea Nitrogen 5L, Creatinine 0.5, Estimat Glomerular Filtration Rate > 60, Glucose Level 98, Calcium Level 9.0, Total Bilirubin 0.2, Aspartate Amino Transf (AST/ SGOT) 9, Alanine Aminotransferase (ALT/SGPT) 6, Alkaline Phosphatase 115H, Total Protein 7.0, Albumin 3.3L, Globulin 3.7, Albumin/Globulin Ratio 0.8L, Lipase 11 03/15/17 04:00: White Blood Count 10.4, Red Blood Count 4.49, Hemoglobin 12.0, Hematocrit 36.9L , Mean Corpuscular Volume 82, Mean Corpuscular Hemoglobin 26.6L, Mean Corpuscular Hemoglobin Concent 32.5, Red Cell Distribution Width 14.3, Platelet Count 425, Mean Platelet Volume 5.8L, Neutrophils (%) (Auto) 67.5, Lymphocytes ( %) (Auto) 20.8, Monocytes (%) (Auto) 7.3, Eosinophils (%) (Auto) 3.7H, Basophils (%) (Auto) 0.7, Sodium Level 142, Potassium Level 3.3L, Chloride Level 109H, Carbon Dioxide Level 21, Anion Gap 12, Blood Urea Nitrogen 4L, Creatinine 0.3L, Estimat Glomerular Filtration Rate > 60, Glucose Level 93, Calcium Level 7.2L, Total Bilirubin 0.2, Aspartate Amino Transf (AST/SGOT) 8, Alanine Aminotransferase (ALT/SGPT) 5, Alkaline Phosphatase 93, Total Protein 5.7L, Albumin 2.5L, Globulin 3.2, Albumin/Globulin Ratio 0.7L Current Medications Medications (Trade) Dose Ordered Sig/Tatiana Route PRN Reason Start Time Stop Time Status Last Admin Dose Admin Acetaminophen (Tylenol) 650 mg Q4H PRN ORAL fever 03/14/17 19:30 04/13/17 19:29 03/15/17 05:07 Albuterol/ Ipratropium (DuoNeb 0.5-3(2.5)mg/3ml) 3 ml Q4H PRN HHN Shortness of Breath 03/14/17 19:30 03/19/17 19:29 Amitriptyline HCl (Elavil) 50 mg BEDTIME ORAL 03/14/17 21:00 04/13/17 20:59 03/14/17 22:14 Cefepime HCl/ Dextrose (Maxipime/D5W) 110 ml @ 220 mls/hr Q12H IV 03/15/17 06:00 03/22/17 05:59 03/15/17 05:01 Chlorhexidine Gluconate (Tamy-Hex 2%) 1 applic DAILY TOPIC 03/15/17 09:00 04/14/17 08:59 03/15/17 08:53 Dextrose (Dextrose 50%) STAT PRN IV Hypoglycemia 03/14/17 19:30 04/13/17 19:29 Fentanyl (Duragesic) 1 patch Q72H TDERMAL 03/14/17 22:00 03/21/17 21:59 03/14/17 22:20 Gabapentin (Neurontin) 300 mg TID ORAL 03/14/17 21:00 04/13/17 20:59 03/15/17 15:10 Heparin Sodium (Porcine) 5000 units 5,000 units EVERY 12 HOURS SUBQ 03/14/17 21:00 04/13/17 20:59 03/15/17 08:55 Lorazepam (Ativan) 0.5 mg Q6H PRN ORAL For Anxiety 03/14/17 20:30 03/21/17 20:29 Miscellaneous Medication 1 ea 1 ea Q72H MISC 03/17/17 22:00 03/21/17 21:59 Naloxone HCl (Narcan) 0.1 mg PRN IV Sedation scale 3 or 4 03/14/17 22:00 03/21/17 21:59 Nitroglycerin (Ntg) 0.4 mg Q5MIN PRN SL Prn Chest Pain 03/14/17 19:30 04/13/17 19:29 Ondansetron HCl (Zofran) 4 mg Q6H PRN IVP Nausea & Vomiting 03/14/17 19:30 04/13/17 19:29 Oxycodone HCl (Roxicodone) 20 mg Q6H PRN ORAL For Breakthrough Pain 03/14/17 19:30 03/21/17 19:29 03/15/17 09:18 Polyethylene Glycol (Miralax) 17 gm DAILYPRN PRN ORAL Constipation 03/14/17 19:30 04/13/17 19:29 Temazepam (Restoril) 15 mg HSPRN PRN ORAL Insomnia 03/14/17 19:30 03/21/17 19:29 Vancomycin HCl (Vanco rx to dose) 1 ea DAILY PRN MISC PRN RX PROTOCOL 03/14/17 22:00 04/13/17 21:59 Vancomycin HCl/ Dextrose (Vancomycin 1250mg/D5W 250ml) 250 ml @ 166.667 mls/hr Q8HR@0200,1000,1800 IVPB 03/15/17 02:00 03/20/17 01:59 03/15/17 11:36 NIKIA CAMPBELL Mar 15, 2017 16:06
[2017-03-15] MEDS ORDERED: Heparin 5000 units/ml inj IV ONE (16:40)
[2017-03-15] MEDS ORDERED: Heparin 25,000u/D5W 500ml 500 ML IV SCH (16:41)
[2017-03-15 17:02] LABS: BASOPHILS % (AUTO) 1.1 % (0.0-2.0); EOSINOPHILS % (AUTO) 4.4 % (0.0-3.0); LYMPHOCYTES % (AUTO) 19.5 % (20.0-45.0); MEAN CORPUSCULAR HEMOGLOBIN 26.9 PG (27.0-31.0); MEAN CORPUSCULAR HGB CONC 32.4 G/DL (32.0-36.0); MEAN CORPUSCULAR VOLUME 83 FL (80-99); MEAN PLATELET VOLUME 5.8 FL (6.5-10.1); MONOCYTES % (AUTO) 6.4 % (1.0-10.0); NEUTROPHILS % (AUTO) 68.6 % (45.0-75.0); PLATELET COUNT 334 K/UL (150-450); RED BLOOD COUNT 4.31 M/UL (4.20-5.40); RED CELL DISTRIBUTION WIDTH 14.7 % (11.6-14.8); WHITE BLOOD COUNT 9.1 K/UL (4.8-10.8)
--- NOTE | 2017-03-15 17:46 | Consultation ---
DATE OF CONSULTATION: 03/15/2017 INFECTIOUS DISEASE CONSULTATION This consult is for coverage of Dr. Parks. CONSULTING PHYSICIAN: Braulio Zhou M.D. PRIMARY ATTENDING: Morena Jorgensen M.D. REASON FOR CONSULT: Sacral osteomyelitis. HISTORY OF PRESENT ILLNESS: This is a 51-year-old female, who is a [facility] resident, admitted yesterday, because of abdominal pain and also had back pain. A CT scan of the abdomen and pelvis showed osteomyelitis in sacrococcyx area. The patient states that she has a sacral wound for a while. She said that the wound has smelly discharge. She denies any fever or chills. PAST MEDICAL HISTORY: Multiple sclerosis. The patient however is bedbound, can use partially right arm. She has gastroesophageal reflux disease. MEDICATIONS: , cefepime, vancomycin, , amitriptyline, gabapentin, heparin, nitroglycerin, Zofran, Tylenol, MiraLax, and DuoNeb inhaler. ALLERGIES: Allergic to morphine and sulfa drugs. SOCIAL HISTORY: custodial resident patient in hospice care. She is DNR, DNI. REVIEW OF SYSTEMS: As history of present illness, the patient has no coughing. No nausea. No vomiting. She has chronic Ramirez catheter. Bedbound. PHYSICAL EXAMINATION: GENERAL APPEARANCE: She is in no acute distress, awake, alert, and oriented. VITAL SIGNS: Temperature 97.9 degrees, pulse 98, and blood pressure 109/66. HEAD AND NECK: [place] conjunctivae. Getting oxygen by nasal cannula. HEART: S1 and S2 are regular. LUNGS: Clear. ABDOMEN: Soft and nontender. EXTREMITIES: , paraplegia, and weakness in the arms more in the left side. She has PICC line in the right arm that was placed in the hospital. LABORATORY DATA: Sodium is 142, potassium 3.3, chloride 109, bicarbonate 21, BUN 4, creatinine is 0.3, and glucose 93. Albumin is 2.5. Urine showed WBC of 5 to 10, RBC 2 to 4, leukocyte esterase positive, and nitrite positive. CT scan of the abdomen showed decubitus ulcer in the sacral area with evidence of bone resection of sacrococcygeal junction, suspicious for osteomyelitis, evidence of free air, and cholecystectomy. IMPRESSION: Sacral osteomyelitis, secondary to stage 4 decubitus ulcer. The patient have pyuria, may have urinary tract infection. Venous duplex showed deep vein thrombosis of left leg. She had multiple sclerosis. RECOMMENDATION: We will continue with cefepime and vancomycin. We will follow up the cultures. The patient needs extensive wound care and evaluation by wound care team. At the end of my exam, I thank, Dr. Jorgensen, for involving me in the care of this patient. Braulio Zhou M.D. DR: KEITH JOB#: [id number] CC: KURT
--- NOTE | 2017-03-15 19:38 | Consultation ---
History of Present Illness General Date patient seen: Mar 15, 2017 Chief Complaint: Abdominal Pain Reason for Consultation: sacral decubitus ulcer Present Illness HPI 51F with past medical history as noted below currently in alf transfered for higher level of care after complaints of left sided abdominal pain for 2 days. States pain cramping and superficial from abdomen to flank. Normal BM's, no n/v/f/c, no GI findings on CT. Upon admission noted to have large sacral decubitus ulcer. Surgery called for evaluation. Allergies: Coded Allergies: SULFA (SULFONAMIDE ANTIBIOTICS) (Verified Allergy, Intermediate, 03/14/17) MORPHINE (Verified Adverse Reaction, Intermediate, GI UPSET AND SHAKES, 17/08) Uncoded Allergies: PAIN KILLER (Allergy, Mild, 06/17/12) CANNOT REMEMBER NAME OF PAIN KILLER Medication History Scheduled Amino Acids/Protein Hydrolys (Pro-Stat Liquid), 30 ML ORAL DAILY, (Reported) Amitriptyline HCl (Amitriptyline HCl), 50 MG ORAL BEDTIME, (Reported) Ascorbic Acid* (Vitamin C*), 500 MG ORAL DAILY, (Reported) Carisoprodol* (Soma*), 350 MG PO BID, (Reported) Cranberry (Cranberry), 450 MG PO DAILY, (Reported) Docusate Sodium* (Colace*), 250 MG ORAL TWICE A DAY, (Reported) Fentanyl (Fentanyl), 1 PATCH TOPIC EVERY 72 HOURS, (Reported) Gabapentin (Neurontin), 300 MG PO TID, (Reported) Gabapentin* (Gabapentin*), 300 MG ORAL THREE TIMES A DAY, (Reported) Interferon Beta-1B (Betaseron), MG SQ QOD, (Reported) Lactulose (Lactulose*), 30 ML ORAL DAILY, (Reported) Oxycodone Hcl Er* (Oxycontin*), 20 MG PO QID, (Reported) Sennosides (Senna), 8.6 MG PO BID, (Reported) Tramadol Hcl* (Ultram*), 50 MG PO Q6H, (Reported) Zinc Sulfate (Zinc Sulfate*), 220 MG ORAL DAILY, (Reported) Scheduled PRN Acetaminophen (Acetaminophen), 650 MG GA Q4HR PRN for Fever/Headache/Mild Pain, (Reported) Acetaminophen* (Acetaminophen 325MG Tablet*), 650 MG ORAL Q8HR PRN for Pain Scale (3-5), (Reported) Bisacodyl* (Dulcolax*), 10 MG ORAL EVERY 24 HOUR PRN for Constipation, (Reported ) Ipratropium/Albuterol Sulfate (DuoNeb 0.5-3(2.5)mg/3ml), 3 ML HHN EVERY 6 HOURS PRN for Shortness of Breath, (Reported) Lorazepam* (Lorazepam*), 0.5 MG ORAL EVERY 6 HOURS PRN for For Anxiety, ( Reported) Magnesium Hydroxide* (Milk Of Magnesia*), 30 ML ORAL DAILY PRN for Constipation, (Reported) Na Phos,M-B/Na Phos,Di-Ba* (Fleet Enema*), 133 ML RECTAL DAILY PRN for CONSTIPATION, (Reported) Ondansetron Odt* (Zofran Odt*), 4 MG ORAL Q6H PRN for Nausea & Vomiting, ( Reported) Oxycodone Hcl* (Oxycodone Hcl*), 20 MG ORAL Q6HR PRN for For Pain, (Reported) Zolpidem Tartrate* (Ambien*), 10 MG ORAL HS PRN for Insomnia, (Reported) [Atropine sulfate 1%], 2 DROP SL EVERY 3 HOURS PRN for Mild to moderate , ( Reported) Patient History History Provided By: Patient, Medical Record Healthcare decision maker Resuscitation status Full Code Advanced Directive on File Past Medical/Surgical History Past Medical/Surgical History: (1) UTI (urinary tract infection) (2) Osteomyelitis (3) Sacral decubitus ulcer (4) Cellulitis Review of Systems Constitutional: Denies: chills, fever, malaise, no symptoms, other, see HPI, sweats, weakness Eye: Denies: acuity changes, blurred vision, discharge, double vision, eye pain , no symptoms, nose congestion, nose pain, other, see HPI, tearing Cardiovascular: Denies: PND, chest pain, edema, no symptoms, other, palpitations, see HPI, syncope Gastrointestinal: Reports: abdominal pain Genitourinary: Denies: discharge, dysuria, frequency, hematuria, incontinence, no symptoms, other, pain, retention, see HPI, urgency, vag bleed/dc Musculoskeletal: Denies: back pain, gout, joint pain, joint swelling, muscle pain, muscle stiffness, no symptoms, other, see HPI Skin: Denies: change in color, change in hair/nails, dryness, lesions, no symptoms, other, rash, see HPI Psychiatric: Denies: HI, SI, anxiety, depressed feelings, emotional problems, hallucinations, no symptoms, other, prior hx, see HPI Neurological: Denies: dizziness, focal weakness, headache, no symptoms, numbness, other, paresthesia, see HPI, seizure, syncope, tingling, tremors Endocrine: Denies: excessive sweating, flushing, increased thirst, increased urine, intolerance to temperature, no symptoms, other, see HPI, unexplained weight loss Hematologic/Lymphatic: Denies: anemia, blood clots, diathesis, easy bleeding, easy bruising, no symptoms, other, see HPI, swollen glands Physical Exam General Appearance: no apparent distress, alert HEENT: mucous membranes moist, PERRL Neck: normal inspection Respiratory/Chest: normal breath sounds, no respiratory distress, no accessory muscle use Cardiovascular/Chest: normal peripheral pulses, normal rate Abdomen: normal bowel sounds, soft, no organomegaly, no mass, tender Extremities: other - limited motion Neurologic: alert, oriented x 3 - 5cm x 6cm deep stage IV sacral decubitus with good granulation tissue Last 24 Hour Vital Signs Date Time Temp Pulse Resp B/P Pulse Ox O2 Delivery O2 Flow Rate FiO2 03/15/17 11:54 97.4 83 20 123/89 97 Room Air 03/15/17 08:15 97.9 98 20 109/66 97 Room Air 03/15/17 07:44 93 18 Room Air 21 03/15/17 03:20 96.3 108 20 109/71 98 Room Air 03/14/17 23:36 97.7 98 19 119/85 98 Room Air 03/14/17 22:50 97.7 03/14/17 21:26 97.7 94 20 104/71 100 Room Air 03/14/17 20:02 97.9 87 18 131/77 96 Room Air Intake and Output 03/14/17 03/15/17 19:00 07:00 Intake Total 1055 ml 325 ml Output Total 1700 ml Balance 1055 ml -1375 ml Intake Oral 50 ml IV Total 1055 ml 275 ml Output Urine Total 1700 ml Laboratory Tests Test 03/15/17 04:00 03/15/17 16:40 White Blood Count 10.4 K/UL (4.8-10.8) 9.1 K/UL (4.8-10.8) Red Blood Count 4.49 M/UL (4.20-5.40) 4.31 M/UL (4.20-5.40) Hemoglobin 12.0 G/DL (12.0-16.0) 11.6 G/DL (12.0-16.0) L Hematocrit 36.9 % (37.0-47.0) L 35.9 % (37.0-47.0) L Mean Corpuscular Volume 82 FL (80-99) 83 FL (80-99) Mean Corpuscular Hemoglobin 26.6 PG (27.0-31.0) L 26.9 PG (27.0-31.0) L Mean Corpuscular Hemoglobin Concent 32.5 G/DL (32.0-36.0) 32.4 G/DL (32.0-36.0) Red Cell Distribution Width 14.3 % (11.6-14.8) 14.7 % (11.6-14.8) Platelet Count 425 K/UL (150-450) 334 K/UL (150-450) Mean Platelet Volume 5.8 FL (6.5-10.1) L 5.8 FL (6.5-10.1) L Neutrophils (%) (Auto) 67.5 % (45.0-75.0) 68.6 % (45.0-75.0) Lymphocytes (%) (Auto) 20.8 % (20.0-45.0) 19.5 % (20.0-45.0) L Monocytes (%) (Auto) 7.3 % (1.0-10.0) 6.4 % (1.0-10.0) Eosinophils (%) (Auto) 3.7 % (0.0-3.0) H 4.4 % (0.0-3.0) H Basophils (%) (Auto) 0.7 % (0.0-2.0) 1.1 % (0.0-2.0) Sodium Level 142 mEQ/L (135-145) Potassium Level 3.3 mEQ/L (3.4-4.9) L Chloride Level 109 mEQ/L (98-107) H Carbon Dioxide Level 21 mEQ/L (20-30) Anion Gap 12 (5-15) Blood Urea Nitrogen 4 mg/dL (7-23) L Creatinine 0.3 mg/dL (0.5-0.9) L Estimat Glomerular Filtration Rate > 60 mL/min (>60) Glucose Level 93 mg/dL (74-106) Calcium Level 7.2 mg/dL (8.6-10.2) L Total Bilirubin 0.2 mg/dL (0.0-1.2) Aspartate Amino Transf (AST/SGOT) 8 U/L (5-40) Alanine Aminotransferase (ALT/SGPT) 5 U/L (3-33) Alkaline Phosphatase 93 U/L (35-104) Total Protein 5.7 g/dL (6.6-8.7) L Albumin 2.5 g/dL (3.5-5.2) L Globulin 3.2 g/dL Albumin/Globulin Ratio 0.7 (1.0-2.7) L Activated Partial Thromboplast Time 30 SEC (23-33) Height (Feet): 5 Height (Inches): 9.00 Weight (Pounds): 210 Medications Current Medications Medications (Trade) Dose Ordered Sig/Tatiana Route PRN Reason Start Time Stop Time Status Last Admin Dose Admin Acetaminophen 650 mg 650 mg Q4H PRN ORAL fever 03/14/17 19:30 04/13/17 19:29 03/15/17 05:07 Albuterol/ Ipratropium (DuoNeb 0.5-3(2.5)mg/3ml) 3 ml Q4H PRN HHN Shortness of Breath 03/14/17 19:30 03/19/17 19:29 Amitriptyline HCl (Elavil) 50 mg BEDTIME ORAL 03/14/17 21:00 04/13/17 20:59 03/14/17 22:14 Cefepime HCl/ Dextrose (Maxipime/D5W) 110 ml @ 220 mls/hr Q12H IV 03/15/17 06:00 03/22/17 05:59 03/15/17 18:38 Chlorhexidine Gluconate 1 applic 1 applic DAILY TOPIC 03/15/17 09:00 04/14/17 08:59 03/15/17 08:53 Dextrose (Dextrose 50%) STAT PRN IV Hypoglycemia 03/14/17 19:30 04/13/17 19:29 Fentanyl (Duragesic) 1 patch Q72H TDERMAL 03/14/17 22:00 03/21/17 21:59 03/14/17 22:20 Gabapentin (Neurontin) 300 mg TID ORAL 03/14/17 21:00 04/13/17 20:59 03/15/17 18:17 Heparin Sodium/ Dextrose (Heparin) 500 ml @ 34.291 mls/ hr adjust per protocol IV 03/15/17 16:41 04/14/17 16:40 03/15/17 18:28 Lorazepam (Ativan) 0.5 mg Q6H PRN ORAL For Anxiety 03/14/17 20:30 03/21/17 20:29 Miscellaneous Medication 1 ea 1 ea Q72H MISC 03/17/17 22:00 03/21/17 21:59 Naloxone HCl (Narcan) 0.1 mg PRN IV Sedation scale 3 or 4 03/14/17 22:00 03/21/17 21:59 Nitroglycerin (Ntg) 0.4 mg Q5MIN PRN SL Prn Chest Pain 03/14/17 19:30 04/13/17 19:29 Ondansetron HCl (Zofran) 4 mg Q6H PRN IVP Nausea & Vomiting 03/14/17 19:30 04/13/17 19:29 Oxycodone HCl (Roxicodone) 20 mg Q6H PRN ORAL For Breakthrough Pain 03/14/17 19:30 03/21/17 19:29 03/15/17 09:18 Polyethylene Glycol (Miralax) 17 gm DAILYPRN PRN ORAL Constipation 03/14/17 19:30 04/13/17 19:29 Temazepam (Restoril) 15 mg HSPRN PRN ORAL Insomnia 03/14/17 19:30 03/21/17 19:29 Vancomycin HCl (Vanco rx to dose) 1 ea DAILY PRN MISC PRN RX PROTOCOL 03/14/17 22:00 04/13/17 21:59 Vancomycin HCl/ Dextrose (Vancomycin 1250mg/D5W 250ml) 250 ml @ 166.667 mls/hr Q8HR@0200,1000,1800 IVPB 7/26/17 02:00 03/20/17 01:59 03/15/17 11:36 Assessment/Plan Problem List: (1) Sacral decubitus ulcer Assessment & Plan: 51F stage 4 sacral decubitus ulcer. wound evaluated at bedside and noted to be clean with good granulation tissue. no areas that require debridement at this time. wound being care for well. afebrile, HD stable, currently no leukocytosis. Does not clinically have signs of osteo but wound is down to coccyx No acute surgical intervention necessary continue with current wound care as written for by wound team will monitor wound while in hospital if febrile, leukocytosis, or worsening wound may consider MRI to evaluate for osteo ICD Codes: L89.159 - Pressure ulcer of sacral region, unspecified stage SNOMED: [id number] Qualifiers: Qualified Codes: L89.154 - Pressure ulcer of sacral region, stage 4 Status: stable Bryan Richardson Mar 15, 2017 19:38
[2017-03-15 20:00] VITALS: BP 120/81
[2017-03-16] VITALS (7 sets, daily range): BP systolic 97–129; BP diastolic 67–78
[2017-03-16] MEDS: Vancomycin 1250mg/D5W 250ml IVPB SCH (01:42)
[2017-03-16] MEDS ORDERED: Heparin 25,000u/D5W 500ml 500 ML IV SCH (02:00)
[2017-03-16] MEDS: oxyCODONE 5mg IR tab ORAL PRN ×4 (05:05→23:42)
[2017-03-16] MEDS: Cefepime HCl 2 GM in D5W 110 ML IV SCH ×2 (06:15→17:34)
[2017-03-16] MEDS: Heparin 25,000u/D5W 500ml 500 ML IV SCH (10:29)
[2017-03-16] MEDS: Dyna-Hex 2% Top Sol 8oz TOPIC SCH (10:29)
[2017-03-16] MEDS: Vancomycin 1gm/D5W 275ml IVPB SCH ×4 (13:49→21:45)
--- NOTE | 2017-03-16 14:10 | Infectious Diseases Prog Note ---
Assessment/Plan Assessment/Plan ASSESSMENT: 51 y/o female with: // Chronic sacrococcygeal osteomyelitis - WCx GNR x2 // Stage IV sacral decubitus ulcer POA - seen by surgery not planning any debridement or flap // Leukocytosis - resolved, afebrile // Multiple sclerosis // Acute LLE DVT // Bedbound // NH resident // Sulfa allergy // DNR, hospice PLAN: - continue IV vancomycin, cefepime d# - weekly CBC, CMP, ESR, CRP while on IV ABX - f/u cultures - wound care Subjective Allergies: Coded Allergies: SULFA (SULFONAMIDE ANTIBIOTICS) (Verified Allergy, Intermediate, 03/14/17) MORPHINE (Verified Adverse Reaction, Intermediate, GI UPSET AND SHAKES, 17/08) Uncoded Allergies: PAIN KILLER (Allergy, Mild, 06/17/12) CANNOT REMEMBER NAME OF PAIN KILLER Subjective remains afebrile no new complaint Objective Vital Signs Last 24 Hour Vital Signs Date Time Temp Pulse Resp B/P Pulse Ox O2 Delivery O2 Flow Rate FiO2 03/16/17 09:00 97.7 86 18 129/73 98 Room Air 03/16/17 07:32 86 20 Room Air 21 03/16/17 04:00 97.3 84 17 126/74 98 Room Air 03/16/17 00:00 97.0 80 20 124/77 99 Room Air 03/15/17 20:09 83 20 Room Air 21 03/15/17 20:00 97.3 92 20 120/81 100 Room Air Height (Feet): 5 Height (Inches): 9.00 Weight (Pounds): 210 General Appearance: no acute distress Respiratory/Chest: no respiratory distress Cardiovascular: normal rate, regular rhythm Abdomen: normal bowel sounds, soft, non tender, non distended Skin: ulcers Microbiology Date/Time Source Procedure Growth Status 03/14/17 20:00 Nasal Nares MRSA Culture - Final Staphylococcus Aureus - Mrsa Complete 03/15/17 04:00 Buttock Right Gram Stain - Final Resulted 03/15/17 04:00 Wound Culture - Preliminary Gram Negative Bacillus 1 Gram Negative Bacillus 2 Resulted Laboratory Tests Test 03/15/17 16:40 03/16/17 00:35 03/16/17 08:15 03/16/17 08:55 White Blood Count 9.1 K/UL (4.8-10.8) Red Blood Count 4.31 M/UL (4.20-5.40) Hemoglobin 11.6 G/DL (12.0-16.0) L Hematocrit 35.9 % (37.0-47.0) L Mean Corpuscular Volume 83 FL (80-99) Mean Corpuscular Hemoglobin 26.9 PG (27.0-31.0) L Mean Corpuscular Hemoglobin Concent 32.4 G/DL (32.0-36.0) Red Cell Distribution Width 14.7 % (11.6-14.8) Platelet Count 334 K/UL (150-450) Mean Platelet Volume 5.8 FL (6.5-10.1) L Neutrophils (%) (Auto) 68.6 % (45.0-75.0) Lymphocytes (%) (Auto) 19.5 % (20.0-45.0) L Monocytes (%) (Auto) 6.4 % (1.0-10.0) Eosinophils (%) (Auto) 4.4 % (0.0-3.0) H Basophils (%) (Auto) 1.1 % (0.0-2.0) Activated Partial Thromboplast Time 30 SEC (23-33) 124 SEC (23-33) H 109 SEC (23-33) H Vancomycin Level Trough 23.5 ug/mL (5.0-12.0) H Current Medications Medications (Trade) Dose Ordered Sig/Tatiana Route PRN Reason Start Time Stop Time Status Last Admin Dose Admin Acetaminophen 650 mg 650 mg Q4H PRN ORAL fever 03/14/17 19:30 04/13/17 19:29 03/15/17 05:07 Albuterol/ Ipratropium (DuoNeb 0.5-3(2.5)mg/3ml) 3 ml Q4H PRN HHN Shortness of Breath 03/14/17 19:30 03/19/17 19:29 Amitriptyline HCl (Elavil) 50 mg BEDTIME ORAL 03/14/17 21:00 04/13/17 20:59 03/15/17 20:50 Cefepime HCl/ Dextrose (Maxipime/D5W) 110 ml @ 220 mls/hr Q12H IV 03/15/17 06:00 03/22/17 05:59 03/16/17 06:15 Chlorhexidine Gluconate 1 applic 1 applic DAILY TOPIC 03/15/17 09:00 04/14/17 08:59 03/16/17 10:29 Dextrose (Dextrose 50%) STAT PRN IV Hypoglycemia 03/14/17 19:30 04/13/17 19:29 Fentanyl (Duragesic) 1 patch Q72H TDERMAL 03/14/17 22:00 03/21/17 21:59 03/14/17 22:20 Gabapentin (Neurontin) 300 mg TID ORAL 03/14/17 21:00 04/13/17 20:59 03/16/17 13:49 Heparin Sodium/ Dextrose 500 ml @ 22.861 mls/ hr adjust per protocol IV 03/16/17 10:30 04/15/17 10:29 03/16/17 10:29 Lorazepam (Ativan) 0.5 mg Q6H PRN ORAL For Anxiety 03/14/17 20:30 03/21/17 20:29 Miscellaneous Medication (fentaNYL Destruction) 1 ea Q72H MISC 03/17/17 22:00 03/21/17 21:59 Naloxone HCl (Narcan) 0.1 mg PRN IV Sedation scale 3 or 4 03/14/17 22:00 03/21/17 21:59 Nitroglycerin (Ntg) 0.4 mg Q5MIN PRN SL Prn Chest Pain 03/14/17 19:30 04/13/17 19:29 Ondansetron HCl (Zofran) 4 mg Q6H PRN IVP Nausea & Vomiting 03/14/17 19:30 04/13/17 19:29 Oxycodone HCl (Roxicodone) 20 mg Q6H PRN ORAL For Breakthrough Pain 03/14/17 19:30 03/21/17 19:29 03/16/17 11:32 Polyethylene Glycol (Miralax) 17 gm DAILYPRN PRN ORAL Constipation 03/14/17 19:30 04/13/17 19:29 Temazepam (Restoril) 15 mg HSPRN PRN ORAL Insomnia 03/14/17 19:30 03/21/17 19:29 Vancomycin HCl (Vanco rx to dose) 1 ea DAILY PRN MISC PRN RX PROTOCOL 03/14/17 22:00 04/13/17 21:59 Vancomycin HCl/ Dextrose (Vancomycin/D5W) 275 ml @ 183.708 mls/hr Q8HR IVPB 03/16/17 14:00 03/21/17 13:59 03/16/17 13:49 LUZ LOPEZ Mar 16, 2017 14:10
--- NOTE | 2017-03-16 18:34 | Pulmonology Progress Note ---
Assessment/Plan Problems: (1) Cellulitis (2) UTI (urinary tract infection) (3) Osteomyelitis (4) Sacral decubitus ulcer Assessment/Plan improving continue abx check cultures dvt, will start on heparin drip and coumadin surgical consult appreciated Subjective ROS Limited/Unobtainable: No Constitutional: Reports: no symptoms HEENT: Repors: no symptoms Respiratory: Reports: no symptoms Allergies: Coded Allergies: SULFA (SULFONAMIDE ANTIBIOTICS) (Verified Allergy, Intermediate, 03/14/17) MORPHINE (Verified Adverse Reaction, Intermediate, GI UPSET AND SHAKES, 17/08) Uncoded Allergies: PAIN KILLER (Allergy, Mild, 06/17/12) CANNOT REMEMBER NAME OF PAIN KILLER Objective Last 24 Hour Vital Signs Date Time Temp Pulse Resp B/P Pulse Ox O2 Delivery O2 Flow Rate FiO2 03/16/17 16:04 97.5 77 20 105/78 98 Room Air 03/16/17 12:00 97.5 77 21 97/67 99 Room Air 03/16/17 09:00 97.7 86 18 129/73 98 Room Air 03/16/17 07:32 86 20 Room Air 21 03/16/17 04:00 97.3 84 17 126/74 98 Room Air 03/16/17 00:00 97.0 80 20 124/77 99 Room Air 03/15/17 20:09 83 20 Room Air 21 03/15/17 20:00 97.3 92 20 120/81 100 Room Air Intake and Output 03/15/17 03/16/17 19:00 07:00 Intake Total 840 ml 1527.675 ml Output Total 800 ml 1700 ml Balance 40 ml -172.325 ml Intake Oral 840 ml 480 ml IV Total 1047.675 ml Output Urine Total 800 ml 1700 ml General Appearance: WD/WN HEENT: normocephalic Respiratory/Chest: chest wall non-tender, no respiratory distress Breasts: no masses Cardiovascular: normal rate Abdomen: no organomegaly Genitourinary: normal external genitalia Microbiology Date/Time Source Procedure Growth Status 03/14/17 20:00 Nasal Nares MRSA Culture - Final Staphylococcus Aureus - Mrsa Complete 03/15/17 04:00 Buttock Right Gram Stain - Final Resulted 03/15/17 04:00 Wound Culture - Preliminary Gram Negative Bacillus 1 Gram Negative Bacillus 2 Resulted Laboratory Tests 03/16/17 00:35: Activated Partial Thromboplast Time 124H 03/16/17 08:15: Activated Partial Thromboplast Time 109H 03/16/17 08:55: Vancomycin Level Trough 23.5H 03/16/17 17:10: Activated Partial Thromboplast Time 66H Current Medications Medications (Trade) Dose Ordered Sig/Tatiana Route PRN Reason Start Time Stop Time Status Last Admin Dose Admin Acetaminophen 650 mg 650 mg Q4H PRN ORAL fever 03/14/17 19:30 04/13/17 19:29 03/15/17 05:07 Albuterol/ Ipratropium (DuoNeb 0.5-3(2.5)mg/3ml) 3 ml Q4H PRN HHN Shortness of Breath 03/14/17 19:30 03/19/17 19:29 Amitriptyline HCl (Elavil) 50 mg BEDTIME ORAL 03/14/17 21:00 04/13/17 20:59 03/15/17 20:50 Cefepime HCl/ Dextrose (Maxipime/D5W) 110 ml @ 220 mls/hr Q12H IV 03/15/17 06:00 03/22/17 05:59 03/16/17 17:34 Chlorhexidine Gluconate 1 applic 1 applic DAILY TOPIC 03/15/17 09:00 04/14/17 08:59 03/16/17 10:29 Dextrose (Dextrose 50%) STAT PRN IV Hypoglycemia 03/14/17 19:30 04/13/17 19:29 Fentanyl (Duragesic) 1 patch Q72H TDERMAL 03/14/17 22:00 03/21/17 21:59 03/14/17 22:20 Gabapentin (Neurontin) 300 mg TID ORAL 03/14/17 21:00 04/13/17 20:59 03/16/17 17:34 Heparin Sodium/ Dextrose 500 ml @ 22.861 mls/ hr adjust per protocol IV 03/16/17 10:30 04/15/17 10:29 03/16/17 10:29 Lorazepam (Ativan) 0.5 mg Q6H PRN ORAL For Anxiety 03/14/17 20:30 03/21/17 20:29 Miscellaneous Medication (fentaNYL Destruction) 1 ea Q72H MISC 03/17/17 22:00 03/21/17 21:59 Naloxone HCl (Narcan) 0.1 mg PRN IV Sedation scale 3 or 4 03/14/17 22:00 03/21/17 21:59 Nitroglycerin (Ntg) 0.4 mg Q5MIN PRN SL Prn Chest Pain 03/14/17 19:30 04/13/17 19:29 Ondansetron HCl (Zofran) 4 mg Q6H PRN IVP Nausea & Vomiting 03/14/17 19:30 04/13/17 19:29 Oxycodone HCl (Roxicodone) 20 mg Q6H PRN ORAL For Breakthrough Pain 03/14/17 19:30 03/21/17 19:29 03/16/17 17:35 Polyethylene Glycol (Miralax) 17 gm DAILYPRN PRN ORAL Constipation 03/14/17 19:30 04/13/17 19:29 Temazepam (Restoril) 15 mg HSPRN PRN ORAL Insomnia 03/14/17 19:30 03/21/17 19:29 Vancomycin HCl (Vanco rx to dose) 1 ea DAILY PRN MISC PRN RX PROTOCOL 03/14/17 22:00 04/13/17 21:59 Vancomycin HCl/ Dextrose (Vancomycin/D5W) 275 ml @ 183.708 mls/hr Q8HR IVPB 03/16/17 14:00 03/21/17 13:59 03/16/17 13:49 NIKIA CAMPBELL Mar 16, 2017 18:34
[2017-03-17 04:00] VITALS: BP 125/73
[2017-03-17] MEDS: Cefepime HCl 2 GM in D5W 110 ML IV SCH (05:21)
[2017-03-17] MEDS: Vancomycin 1gm/D5W 275ml IVPB SCH ×4 (06:35→14:00)
[2017-03-17 08:15] VITALS: BP 92/62
[2017-03-17] MEDS: Dyna-Hex 2% Top Sol 8oz TOPIC SCH (08:50)
[2017-03-17] MEDS: oxyCODONE 5mg IR tab ORAL PRN ×3 (08:55→21:14)
--- NOTE | 2017-03-17 09:32 | General Surgery Progress Note ---
General Surgery-Progress Note Subjective Additional Comments pt seen and examined at bedside. doing well. no complaints. turning every few hours as scheduled. Objective Last 24 Hour Vital Signs Date Time Temp Pulse Resp B/P Pulse Ox O2 Delivery O2 Flow Rate FiO2 03/17/17 06:38 98 16 Room Air 03/17/17 04:00 97.8 99 20 125/73 98 Room Air 03/16/17 23:49 97.9 93 20 98/70 94 Room Air 03/16/17 20:00 97.9 94 19 107/67 98 Room Air 03/16/17 19:10 81 20 Room Air 21 03/16/17 16:04 97.5 77 20 105/78 98 Room Air 03/16/17 12:00 97.5 77 21 97/67 99 Room Air I&O Intake and Output 03/16/17 03/17/17 19:00 07:00 Intake Total 1405.079 ml 572.271 ml Output Total 1400 ml 200 ml Balance 5.079 ml 372.271 ml Intake Oral 780 ml IV Total 625.079 ml 572.271 ml Output Urine Total 1400 ml 200 ml Wound: clean, other - sacral decub stage 4 clean with good granulation tissue. no necrotic tissue to debride at this time Cardiovascular: RSR Respiratory: clear Abdomen: soft, non-tender, present bowel sounds Extremities: no tenderness, no cyanosis Laboratory Tests Test 03/16/17 17:10 03/17/17 04:00 Activated Partial Thromboplast Time 66 SEC (23-33) H 65 SEC (23-33) H Plan Problems: (1) Sacral decubitus ulcer Assessment & Plan: 51F stage 4 sacral decubitus ulcer. wound clean with good granulation tissue. afebrile, HD stable, labs okay. Does not clinically have signs of osteo but wound is down to coccyx no areas that require debridement at this time. No acute surgical intervention necessary continue with current wound care as written for by wound team will monitor wound while in [facility] [place] Mar 17, 2017 09:32
--- NOTE | 2017-03-17 12:06 | Infectious Diseases Prog Note ---
Assessment/Plan Assessment/Plan ASSESSMENT: 51 y/o female with: // Chronic sacrococcygeal osteomyelitis - WCx 4+ ESBL(+) E.coli // Stage IV sacral decubitus ulcer POA - seen by surgery not planning any debridement or flap // Leukocytosis - resolved, afebrile // Multiple sclerosis // Acute LLE DVT // Bedbound // NH resident // Sulfa allergy // DNR, hospice PLAN: - continue IV vancomycin, change cefepime-->invanz ABX d# - weekly CBC, CMP, ESR, CRP while on IV ABX - f/u cultures - wound care Subjective Allergies: Coded Allergies: SULFA (SULFONAMIDE ANTIBIOTICS) (Verified Allergy, Intermediate, 03/14/17) MORPHINE (Verified Adverse Reaction, Intermediate, GI UPSET AND SHAKES, 17/08) Uncoded Allergies: PAIN KILLER (Allergy, Mild, 06/17/12) CANNOT REMEMBER NAME OF PAIN KILLER Subjective remains afebrile no new complaint Objective Vital Signs Last 24 Hour Vital Signs Date Time Temp Pulse Resp B/P Pulse Ox O2 Delivery O2 Flow Rate FiO2 03/17/17 08:15 97.0 89 11 92/62 97 Room Air 03/17/17 06:38 98 16 Room Air 03/17/17 04:00 97.8 99 20 125/73 98 Room Air 03/16/17 23:49 97.9 93 20 98/70 94 Room Air 03/16/17 20:00 97.9 94 19 107/67 98 Room Air 03/16/17 19:10 81 20 Room Air 21 03/16/17 16:04 97.5 77 20 105/78 98 Room Air Height (Feet): 5 Height (Inches): 9.00 Weight (Pounds): 210 General Appearance: no acute distress Respiratory/Chest: no respiratory distress Cardiovascular: normal rate, regular rhythm Abdomen: normal bowel sounds, soft, non tender, non distended Skin: ulcers Microbiology Date/Time Source Procedure Growth Status 03/14/17 20:00 Nasal Nares MRSA Culture - Final Staphylococcus Aureus - Mrsa Complete 03/15/17 04:00 Buttock Right Gram Stain - Final Resulted 03/15/17 04:00 Wound Culture - Preliminary Escherichia Coli - Esbl Resulted 03/14/17 20:00 Rectum VRE Culture - Final Enterococcus Faecalis - Vre Complete Laboratory Tests Test 03/16/17 17:10 03/17/17 04:00 Activated Partial Thromboplast Time 66 SEC (23-33) H 65 SEC (23-33) H Current Medications Medications (Trade) Dose Ordered Sig/Tatiana Route PRN Reason Start Time Stop Time Status Last Admin Dose Admin Acetaminophen 650 mg 650 mg Q4H PRN ORAL fever 03/14/17 19:30 04/13/17 19:29 03/15/17 05:07 Albuterol/ Ipratropium (DuoNeb 0.5-3(2.5)mg/3ml) 3 ml Q4H PRN HHN Shortness of Breath 03/14/17 19:30 03/19/17 19:29 Amitriptyline HCl (Elavil) 50 mg BEDTIME ORAL 03/14/17 21:00 04/13/17 20:59 03/16/17 21:43 Cefepime HCl/ Dextrose (Maxipime/D5W) 110 ml @ 220 mls/hr Q12H IV 03/15/17 06:00 03/22/17 05:59 03/17/17 05:21 Chlorhexidine Gluconate 1 applic 1 applic DAILY TOPIC 03/15/17 09:00 04/14/17 08:59 03/17/17 08:50 Dextrose (Dextrose 50%) STAT PRN IV Hypoglycemia 03/14/17 19:30 04/13/17 19:29 Fentanyl (Duragesic) 1 patch Q72H TDERMAL 03/14/17 22:00 03/21/17 21:59 03/14/17 22:20 Gabapentin (Neurontin) 300 mg TID ORAL 03/14/17 21:00 04/13/17 20:59 03/17/17 08:50 Heparin Sodium/ Dextrose 500 ml @ 22.861 mls/ hr adjust per protocol IV 03/16/17 10:30 04/15/17 10:29 03/16/17 10:29 Lorazepam (Ativan) 0.5 mg Q6H PRN ORAL For Anxiety 03/14/17 20:30 03/21/17 20:29 Miscellaneous Medication (fentaNYL Destruction) 1 ea Q72H MISC 03/17/17 22:00 03/21/17 21:59 Naloxone HCl (Narcan) 0.1 mg PRN IV Sedation scale 3 or 4 03/14/17 22:00 03/21/17 21:59 Nitroglycerin (Ntg) 0.4 mg Q5MIN PRN SL Prn Chest Pain 03/14/17 19:30 04/13/17 19:29 Ondansetron HCl (Zofran) 4 mg Q6H PRN IVP Nausea & Vomiting 03/14/17 19:30 04/13/17 19:29 Oxycodone HCl (Roxicodone) 20 mg Q6H PRN ORAL For Breakthrough Pain 03/14/17 19:30 03/21/17 19:29 03/17/17 08:55 Polyethylene Glycol (Miralax) 17 gm DAILYPRN PRN ORAL Constipation 03/14/17 19:30 04/13/17 19:29 Temazepam (Restoril) 15 mg HSPRN PRN ORAL Insomnia 03/14/17 19:30 03/21/17 19:29 Vancomycin HCl (Vanco rx to dose) 1 ea DAILY PRN MISC PRN RX PROTOCOL 03/14/17 22:00 04/13/17 21:59 Vancomycin HCl/ Dextrose (Vancomycin/D5W) 275 ml @ 183.708 mls/hr Q8HR IVPB 03/16/17 14:00 03/21/17 13:59 03/17/17 06:35 LUZ LOPEZ Mar 17, 2017 12:06
[2017-03-17 12:15] VITALS: BP 106/69
[2017-03-17] MEDS: Heparin 25,000u/D5W 500ml 500 ML IV SCH (12:57)
[2017-03-17] MEDS: Ertapenem 1 GM in NS 55 ML IVPB SCH (14:07)
[2017-03-17 16:09] VITALS: BP 111/72
--- NOTE | 2017-03-17 19:42 | Pulmonology Progress Note ---
Assessment/Plan Problems: (1) Cellulitis (2) UTI (urinary tract infection) (3) Osteomyelitis (4) Sacral decubitus ulcer Assessment/Plan improving continue abx check cultures dvt, will start on heparin drip and coumadin surgical consult appreciated IV antibiotics for 42 days. Subjective ROS Limited/Unobtainable: No Constitutional: Reports: no symptoms HEENT: Repors: no symptoms Allergies: Coded Allergies: SULFA (SULFONAMIDE ANTIBIOTICS) (Verified Allergy, Intermediate, 03/14/17) MORPHINE (Verified Adverse Reaction, Intermediate, GI UPSET AND SHAKES, 17/08) Uncoded Allergies: PAIN KILLER (Allergy, Mild, 06/17/12) CANNOT REMEMBER NAME OF PAIN KILLER Objective Last 24 Hour Vital Signs Date Time Temp Pulse Resp B/P Pulse Ox O2 Delivery O2 Flow Rate FiO2 03/17/17 16:09 97.7 82 14 111/72 97 Room Air 03/17/17 12:15 97.7 100 17 106/69 97 Room Air 03/17/17 08:15 97.0 89 11 92/62 97 Room Air 03/17/17 06:38 98 16 Room Air 03/17/17 04:00 97.8 99 20 125/73 98 Room Air 03/16/17 23:49 97.9 93 20 98/70 94 Room Air 03/16/17 20:00 97.9 94 19 107/67 98 Room Air Intake and Output 03/16/17 03/17/17 19:00 07:00 Intake Total 1405.079 ml 572.271 ml Output Total 1400 ml 200 ml Balance 5.079 ml 372.271 ml Intake Oral 780 ml IV Total 625.079 ml 572.271 ml Output Urine Total 1400 ml 200 ml Objective General Appearance: WD/WN HEENT: normocephalic Respiratory/Chest: chest wall non-tender, lungs clear Breasts: no masses Cardiovascular: normal peripheral pulses Abdomen: normal bowel sounds, soft, non tender Genitourinary: normal external genitalia Skin: no rash, extensive deep sacral decubiti Microbiology Date/Time Source Procedure Growth Status 03/14/17 20:00 Nasal Nares MRSA Culture - Final Staphylococcus Aureus - Mrsa Complete 03/15/17 04:00 Buttock Right Gram Stain - Final Resulted 03/15/17 04:00 Wound Culture - Preliminary Escherichia Coli - Esbl Resulted 03/14/17 20:00 Rectum VRE Culture - Final Enterococcus Faecalis - Vre Complete Laboratory Tests 03/17/17 04:00: Activated Partial Thromboplast Time 65H 03/17/17 13:20: Vancomycin Level Trough 22.8H Current Medications Medications (Trade) Dose Ordered Sig/Tatiana Route PRN Reason Start Time Stop Time Status Last Admin Dose Admin Acetaminophen (Tylenol) 650 mg Q4H PRN ORAL fever 03/14/17 19:30 04/13/17 19:29 03/15/17 05:07 Albuterol/ Ipratropium (DuoNeb 0.5-3(2.5)mg/3ml) 3 ml Q4H PRN HHN Shortness of Breath 03/14/17 19:30 03/19/17 19:29 Amitriptyline HCl (Elavil) 50 mg BEDTIME ORAL 03/14/17 21:00 04/13/17 20:59 03/16/17 21:43 Chlorhexidine Gluconate 1 applic 1 applic DAILY TOPIC 03/15/17 09:00 04/14/17 08:59 03/17/17 08:50 Dextrose (Dextrose 50%) STAT PRN IV Hypoglycemia 03/14/17 19:30 04/13/17 19:29 Ertapenem 1 gm/ Sodium Chloride 55 ml @ 110 mls/hr Q24H IVPB 03/17/17 14:00 03/22/17 13:59 03/17/17 14:07 Fentanyl (Duragesic) 1 patch Q72H TDERMAL 03/14/17 22:00 03/21/17 21:59 03/14/17 22:20 Gabapentin (Neurontin) 300 mg TID ORAL 03/14/17 21:00 04/13/17 20:59 03/17/17 18:01 Heparin Sodium/ Dextrose 500 ml @ 22.861 mls/ hr adjust per protocol IV 03/16/17 10:30 04/15/17 10:29 03/17/17 12:57 Lorazepam (Ativan) 0.5 mg Q6H PRN ORAL For Anxiety 03/14/17 20:30 03/21/17 20:29 Miscellaneous Medication (fentaNYL Destruction) 1 ea Q72H MISC 03/17/17 22:00 03/21/17 21:59 Naloxone HCl (Narcan) 0.1 mg PRN IV Sedation scale 3 or 4 03/14/17 22:00 03/21/17 21:59 Nitroglycerin (Ntg) 0.4 mg Q5MIN PRN SL Prn Chest Pain 03/14/17 19:30 04/13/17 19:29 Ondansetron HCl (Zofran) 4 mg Q6H PRN IVP Nausea & Vomiting 03/14/17 19:30 04/13/17 19:29 Oxycodone HCl (Roxicodone) 20 mg Q6H PRN ORAL For Breakthrough Pain 03/14/17 19:30 03/21/17 19:29 03/17/17 15:06 Polyethylene Glycol (Miralax) 17 gm DAILYPRN PRN ORAL Constipation 03/14/17 19:30 04/13/17 19:29 Temazepam (Restoril) 15 mg HSPRN PRN ORAL Insomnia 03/14/17 19:30 03/21/17 19:29 Vancomycin HCl (Vanco rx to dose) 1 ea DAILY PRN MISC PRN RX PROTOCOL 03/14/17 22:00 04/13/17 21:59 Vancomycin HCl/ Dextrose (Vancomycin 1.5gm/D5W 250ml) 250 ml @ 125 mls/hr Q12HR IVPB 03/18/17 09:00 03/23/17 08:59 NIKIA CAMPBELL Mar 17, 2017 19:42
[2017-03-17 20:00] VITALS: BP 100/69
[2017-03-17] MEDS: fentaNYL Destruction MISC SCH (22:12)
[2017-03-18] VITALS: BP 102/66
[2017-03-18 04:00] VITALS: BP 100/62
[2017-03-18 05:14] LABS: BASOPHILS % (AUTO) 0.8 % (0.0-2.0); EOSINOPHILS % (AUTO) 7.1 % (0.0-3.0); LYMPHOCYTES % (AUTO) 33.5 % (20.0-45.0); MEAN CORPUSCULAR HEMOGLOBIN 26.2 PG (27.0-31.0); MEAN CORPUSCULAR HGB CONC 31.6 G/DL (32.0-36.0); MEAN CORPUSCULAR VOLUME 83 FL (80-99); MEAN PLATELET VOLUME 5.8 FL (6.5-10.1); NEUTROPHILS % (AUTO) 50.7 % (45.0-75.0); PLATELET COUNT 332 K/UL (150-450); RED BLOOD COUNT 4.68 M/UL (4.20-5.40); RED CELL DISTRIBUTION WIDTH 14.6 % (11.6-14.8)
[2017-03-18] MEDS ORDERED: Heparin 5000 units/ml inj IV ONE ×2 (06:00→20:15)
[2017-03-18 08:00] VITALS: BP 111/65
[2017-03-18] MEDS: Dyna-Hex 2% Top Sol 8oz TOPIC SCH (08:52)
[2017-03-18] MEDS: oxyCODONE 5mg IR tab ORAL PRN ×3 (09:03→22:28)
[2017-03-18] MEDS ORDERED: Tubing IV Secondary IV ONE (09:49)
[2017-03-18] MEDS ORDERED: NS 275ml ONE (09:49)
[2017-03-18] MEDS: Vancomycin 1.5gm/D5W 250ml 250 ML IVPB SCH ×2 (10:48→22:26)
[2017-03-18 12:04] VITALS: BP 118/78
[2017-03-18] MEDS: Heparin 25,000u/D5W 500ml 500 ML IV SCH ×2 (13:25→20:31)
--- NOTE | 2017-03-18 13:39 | General Progress Note ---
Progress Note Progress Note Afebrile, comfortable, sacral wound clean 'punched out' St IV decubitus without infection or tissue, granulating well. VENTURA PANTOJA Mar 18, 2017 13:39
--- NOTE | 2017-03-18 13:47 | Pulmonology Progress Note ---
Assessment/Plan Problems: (1) Cellulitis (2) UTI (urinary tract infection) (3) Osteomyelitis (4) Sacral decubitus ulcer Assessment/Plan improving continue abx check cultures dvt, will start on heparin drip and coumadin surgical consult appreciated IV antibiotics for 42 days. Subjective ROS Limited/Unobtainable: No Constitutional: Reports: no symptoms HEENT: Repors: no symptoms Respiratory: Reports: no symptoms Cardiovascular: Reports: no symptoms Allergies: Coded Allergies: SULFA (SULFONAMIDE ANTIBIOTICS) (Verified Allergy, Intermediate, 03/14/17) MORPHINE (Verified Adverse Reaction, Intermediate, GI UPSET AND SHAKES, 17/08) Uncoded Allergies: PAIN KILLER (Allergy, Mild, 06/17/12) CANNOT REMEMBER NAME OF PAIN KILLER Objective Last 24 Hour Vital Signs Date Time Temp Pulse Resp B/P Pulse Ox O2 Delivery O2 Flow Rate FiO2 03/18/17 12:04 97.0 83 20 118/78 97 Room Air 03/18/17 08:00 97.9 88 20 111/65 93 Room Air 03/18/17 07:00 82 18 Room Air 21 03/18/17 04:00 97.7 80 16 100/62 95 Room Air 03/18/17 00:00 97.9 94 16 102/66 94 Room Air 03/17/17 20:00 98.1 93 18 100/69 97 Room Air 03/17/17 18:52 95 16 Room Air 03/17/17 16:09 97.7 82 14 111/72 97 Room Air Intake and Output 03/17/17 03/18/17 19:00 07:00 Intake Total 960 ml 240 ml Output Total 1800 ml 1000 ml Balance -840 ml -760 ml Intake Oral 960 ml 240 ml Output Urine Total 1800 ml 1000 ml Objective General Appearance: WD/WN HEENT: normocephalic Respiratory/Chest: chest wall non-tender, lungs clear Breasts: no masses Cardiovascular: normal peripheral pulses Abdomen: normal bowel sounds, soft, non tender Genitourinary: normal external genitalia Skin: no rash, extensive deep sacral decubiti Laboratory Tests 03/18/17 04:00: White Blood Count 8.0, Red Blood Count 4.68, Hemoglobin 12.3, Hematocrit 38.9, Mean Corpuscular Volume 83, Mean Corpuscular Hemoglobin 26.2L, Mean Corpuscular Hemoglobin Concent 31.6L, Red Cell Distribution Width 14.6, Platelet Count 332, Mean Platelet Volume 5.8L, Neutrophils (%) (Auto) 50.7, Lymphocytes (%) (Auto) 33.5, Monocytes (%) (Auto) 8.0, Eosinophils (%) (Auto) 7.1H, Basophils (%) (Auto ) 0.8, Activated Partial Thromboplast Time 54H 03/18/17 12:00: Activated Partial Thromboplast Time 42H Current Medications Medications (Trade) Dose Ordered Sig/Tatiana Route PRN Reason Start Time Stop Time Status Last Admin Dose Admin Acetaminophen (Tylenol) 650 mg Q4H PRN ORAL fever 03/14/17 19:30 04/13/17 19:29 03/15/17 05:07 Albuterol/ Ipratropium (DuoNeb 0.5-3(2.5)mg/3ml) 3 ml Q4H PRN HHN Shortness of Breath 03/14/17 19:30 03/19/17 19:29 Amitriptyline HCl (Elavil) 50 mg BEDTIME ORAL 03/14/17 21:00 04/13/17 20:59 03/17/17 21:13 Chlorhexidine Gluconate 1 applic 1 applic DAILY TOPIC 03/15/17 09:00 04/14/17 08:59 03/18/17 08:52 Dextrose (Dextrose 50%) STAT PRN IV Hypoglycemia 03/14/17 19:30 04/13/17 19:29 Ertapenem 1 gm/ Sodium Chloride 55 ml @ 110 mls/hr Q24H IVPB 03/17/17 14:00 03/22/17 13:59 03/17/17 14:07 Fentanyl (Duragesic) 1 patch Q72H TDERMAL 03/14/17 22:00 03/21/17 21:59 03/17/17 22:16 Gabapentin (Neurontin) 300 mg TID ORAL 03/14/17 21:00 04/13/17 20:59 03/18/17 13:13 Heparin Sodium/ Dextrose (Heparin) 500 ml @ 26.671 mls/ hr adjust per protocol IV 03/18/17 05:45 04/17/17 05:44 03/18/17 13:25 Lorazepam (Ativan) 0.5 mg Q6H PRN ORAL For Anxiety 03/14/17 20:30 03/21/17 20:29 Miscellaneous Medication (fentaNYL Destruction) 1 ea Q72H MISC 03/17/17 22:00 03/21/17 21:59 03/17/17 22:12 Naloxone HCl (Narcan) 0.1 mg PRN IV Sedation scale 3 or 4 03/14/17 22:00 03/21/17 21:59 Nitroglycerin (Ntg) 0.4 mg Q5MIN PRN SL Prn Chest Pain 03/14/17 19:30 04/13/17 19:29 Ondansetron HCl (Zofran) 4 mg Q6H PRN IVP Nausea & Vomiting 03/14/17 19:30 04/13/17 19:29 Oxycodone HCl (Roxicodone) 20 mg Q6H PRN ORAL For Breakthrough Pain 03/14/17 19:30 03/21/17 19:29 03/18/17 09:03 Polyethylene Glycol (Miralax) 17 gm DAILYPRN PRN ORAL Constipation 03/14/17 19:30 04/13/17 19:29 Temazepam (Restoril) 15 mg HSPRN PRN ORAL Insomnia 03/14/17 19:30 03/21/17 19:29 Vancomycin HCl (Vanco rx to dose) 1 ea DAILY PRN MISC PRN RX PROTOCOL 03/14/17 22:00 04/13/17 21:59 Vancomycin HCl/ Dextrose 250 ml @ 125 mls/hr Q12HR IVPB 03/18/17 09:00 03/23/17 08:59 03/18/17 10:48 NIKIA CAMPBELL Mar 18, 2017 13:47
[2017-03-18] MEDS: Ertapenem 1 GM in NS 55 ML IVPB SCH (15:01)
[2017-03-18 16:00] VITALS: BP 108/68
[2017-03-18 20:00] VITALS: BP 105/65
[2017-03-19] VITALS: BP 106/66
[2017-03-19 04:00] VITALS: BP 126/70
[2017-03-19] MEDS: Heparin 25,000u/D5W 500ml 500 ML IV SCH ×3 (05:13→12:37)
[2017-03-19] MEDS: oxyCODONE 5mg IR tab ORAL PRN ×3 (05:14→18:02)
--- NOTE | 2017-03-19 06:02 | Consultation ---
DATE OF CONSULTATION: 03/18/2017 NOTE: POOR AUDIO TYPE OF CONSULT: Hematology/Oncology. REFERRING PHYSICIAN: Morena Jorgensen M.D. REASON FOR CONSULTATION: Rash and DVT. IDENTIFICATION DATA: Dear Dr. Morena Jorgensen, The patient is a pleasant 51-year-old female with a past medical history, which is significant for UTI, history of osteomyelitis, and cellulitis at this time presented to the hospital from detention with higher level of care because of abdominal pain for the past several days. No findings noted on CAT scan. The patient is noted to have DVT, and Hematology service is consulted for further evaluation and treatment. PAST MEDICAL HISTORY: Multiple sclerosis, bedbound, partially right arm, GERD. MEDICATIONS: Cefepime, vancomycin, amitriptyline, heparin, nitroglycerin, Tylenol, and MiraLAX. ALLERGIES: No allergies. SOCIAL HISTORY: halfway resident, on hospice. The patient is DNR/DNI. FAMILY HISTO: Noncontributory. REVIEW OF SYSTEMS: Constitutional: No fever, chills, or night sweats. Skin: No rashes, lumps, or itching. HEENT: No headache, hearing, or vision changes. Breasts: No lumps, pain, or discharge. Pulmonary: No cough, sputum, or shortness of breath. Cardiovascular: No chest pain, tenderness, or palpitations. Gastrointestinal: No nausea, vomiting, or diarrhea. . Genitourinary: No dysuria, frequency, or urgency. PHYSICAL EXAMINATION: GENERAL: The patient is in no acute distress. VITAL SIGNS: Reviewed. PULMONARY: Decreased breath sounds. CARDIOVASCULAR: Regular rate. No S3 or S4. ABDOMEN: Soft, nontender, and nondistended. EXTREMITIES: No edema. LABORATORY DATA: WBC , hemoglobin 12.3, hematocrit 39, and platelet count . PTT 39. Chemistry shows ____, creatinine 0.3. nitroglycerin ASSESSMENT AND PLAN: Deep venous thrombosis of the left hematology service again consulted closely monitor Osteomyelitis potential secondary to decubitus ulceration cellulitis noted . Thank you, Dr. Morena Jorgensen, for this kind referral. Amandeep Art M.D. DR: DARIUS JOB#: [id number] CC:
[2017-03-19 08:00] VITALS: BP 109/66
[2017-03-19] MEDS ORDERED: NS 550ML IV ONE (08:15)
[2017-03-19] MEDS: Vancomycin 1.5gm/D5W 250ml 250 ML IVPB SCH ×2 (08:33→22:20)
[2017-03-19] MEDS: Dyna-Hex 2% Top Sol 8oz TOPIC SCH (08:33)
[2017-03-19 11:56] LABS: MEAN CORPUSCULAR HEMOGLOBIN 26.1 PG (27.0-31.0); MEAN CORPUSCULAR HGB CONC 31.3 G/DL (32.0-36.0); MEAN CORPUSCULAR VOLUME 83 FL (80-99); MEAN PLATELET VOLUME 6.1 FL (6.5-10.1); PLATELET COUNT 321 K/UL (150-450); RED BLOOD COUNT 4.64 M/UL (4.20-5.40); WHITE BLOOD COUNT 8.1 K/UL (4.8-10.8)
[2017-03-19 12:00] VITALS: BP 106/52
[2017-03-19] MEDS ORDERED: Heparin 5000 units/ml inj IV ONE ×2 (12:15→19:55)
[2017-03-19] MEDS: Ertapenem 1 GM in NS 55 ML IVPB SCH (13:13)
--- NOTE | 2017-03-19 13:14 | Infectious Diseases Prog Note ---
Assessment/Plan Assessment/Plan A; Sacral osteomyelitis Pressure ulcer MRSA & VRE colonization DVT of left leg Multiple sclerosis P; Continue Ertapenem & Vancomycin Subjective ROS Limited/Unobtainable: Yes Allergies: Coded Allergies: SULFA (SULFONAMIDE ANTIBIOTICS) (Verified Allergy, Intermediate, 03/14/17) MORPHINE (Verified Adverse Reaction, Intermediate, GI UPSET AND SHAKES, 17/08) Uncoded Allergies: PAIN KILLER (Allergy, Mild, 06/17/12) CANNOT REMEMBER NAME OF PAIN KILLER Objective Vital Signs Last 24 Hour Vital Signs Date Time Temp Pulse Resp B/P Pulse Ox O2 Delivery O2 Flow Rate FiO2 03/19/17 12:00 97.9 81 20 106/52 98 Room Air 03/19/17 08:00 97.5 84 20 109/66 94 Room Air 03/19/17 07:45 84 18 Room Air 03/19/17 04:00 98.1 90 20 126/70 97 Room Air 03/19/17 00:00 97.9 87 20 106/66 98 Room Air 03/18/17 20:44 84 18 Room Air 21 03/18/17 20:00 97.3 84 20 105/65 99 Room Air 03/18/17 16:00 98.3 83 20 108/68 97 Room Air Height (Feet): 5 Height (Inches): 9.00 Weight (Pounds): 210 General Appearance: no acute distress HEENT: mucous membranes moist Respiratory/Chest: lungs clear Cardiovascular: normal rate Abdomen: soft, non tender Extremities: no edema, other - R arm PICC line Skin: ulcers Neurologic/Psychiatric: other - sleeping Laboratory Tests Test 03/18/17 19:00 03/19/17 02:30 03/19/17 11:10 Activated Partial Thromboplast Time 29 SEC (23-33) > 150 SEC (23-33) *H 64 SEC (23-33) H White Blood Count 8.1 K/UL (4.8-10.8) Red Blood Count 4.64 M/UL (4.20-5.40) Hemoglobin 12.1 G/DL (12.0-16.0) Hematocrit 38.7 % (37.0-47.0) Mean Corpuscular Volume 83 FL (80-99) Mean Corpuscular Hemoglobin 26.1 PG (27.0-31.0) L Mean Corpuscular Hemoglobin Concent 31.3 G/DL (32.0-36.0) L Red Cell Distribution Width 15.0 % (11.6-14.8) H Platelet Count 321 K/UL (150-450) Mean Platelet Volume 6.1 FL (6.5-10.1) L Neutrophils (%) (Auto) % (45.0-75.0) Lymphocytes (%) (Auto) % (20.0-45.0) Monocytes (%) (Auto) % (1.0-10.0) Eosinophils (%) (Auto) % (0.0-3.0) Basophils (%) (Auto) % (0.0-2.0) Neutrophils % (Manual) Pending Lymphocytes % (Manual) Pending Platelet Estimate Pending Platelet Morphology Pending Lupus Anticoagulant Pending Lupus Anticoagulant PTT Baseline Pending Lupus Anticoag DRVVT Screen Ratio Pending DRVVT Confirmation Interpretation Pending Hexagonal Phase Comment Pending Anti-Thrombin III Activity Pending Factor V Mutation Pending Prothrombin Gene Mutation Pending Prothrombin Gene Shared Component Pending Alpha Fetoprotein Pending Carcinoembryonic Antigen 2.8 ng/mL CA 15-3 Antigen Pending CA 19-9 Antigen 0.600 U/mL (< 37) CA 125 Antigen Pending Current Medications Medications (Trade) Dose Ordered Sig/Tatiana Route PRN Reason Start Time Stop Time Status Last Admin Dose Admin Acetaminophen (Tylenol) 650 mg Q4H PRN ORAL fever 03/14/17 19:30 04/13/17 19:29 03/15/17 05:07 Albuterol/ Ipratropium (DuoNeb 0.5-3(2.5)mg/3ml) 3 ml Q4H PRN HHN Shortness of Breath 03/14/17 19:30 03/19/17 19:29 Amitriptyline HCl (Elavil) 50 mg BEDTIME ORAL 03/14/17 21:00 04/13/17 20:59 03/18/17 20:19 Chlorhexidine Gluconate 1 applic 1 applic DAILY TOPIC 03/15/17 09:00 04/14/17 08:59 03/19/17 08:33 Dextrose (Dextrose 50%) STAT PRN IV Hypoglycemia 03/14/17 19:30 04/13/17 19:29 Ertapenem 1 gm/ Sodium Chloride 55 ml @ 110 mls/hr Q24H IVPB 03/17/17 14:00 03/22/17 13:59 03/18/17 15:01 Fentanyl (Duragesic) 1 patch Q72H TDERMAL 03/14/17 22:00 03/21/17 21:59 03/17/17 22:16 Gabapentin (Neurontin) 300 mg TID ORAL 03/14/17 21:00 04/13/17 20:59 03/19/17 08:33 Heparin Sodium/ Dextrose (Heparin) 500 ml @ 30.481 mls/ hr adjust per protocol IV 03/19/17 05:10 04/18/17 05:09 03/19/17 12:37 Lorazepam (Ativan) 0.5 mg Q6H PRN ORAL For Anxiety 03/14/17 20:30 03/21/17 20:29 Miscellaneous Medication (fentaNYL Destruction) 1 ea Q72H MISC 03/17/17 22:00 03/21/17 21:59 03/17/17 22:12 Naloxone HCl (Narcan) 0.1 mg PRN IV Sedation scale 3 or 4 03/14/17 22:00 03/21/17 21:59 Nitroglycerin (Ntg) 0.4 mg Q5MIN PRN SL Prn Chest Pain 03/14/17 19:30 04/13/17 19:29 Ondansetron HCl (Zofran) 4 mg Q6H PRN IVP Nausea & Vomiting 03/14/17 19:30 04/13/17 19:29 Oxycodone HCl (Roxicodone) 20 mg Q6H PRN ORAL For Breakthrough Pain 03/14/17 19:30 03/21/17 19:29 03/19/17 11:38 Polyethylene Glycol (Miralax) 17 gm DAILYPRN PRN ORAL Constipation 03/14/17 19:30 04/13/17 19:29 Temazepam (Restoril) 15 mg HSPRN PRN ORAL Insomnia 03/14/17 19:30 03/21/17 19:29 Vancomycin HCl (Vanco rx to dose) 1 ea DAILY PRN MISC PRN RX PROTOCOL 03/14/17 22:00 04/13/17 21:59 Vancomycin HCl/ Dextrose 250 ml @ 125 mls/hr Q12HR IVPB 03/18/17 09:00 03/23/17 08:59 03/19/17 08:33 ASAEL APARICIO Mar 19, 2017 13:14
[2017-03-19 13:20] LABS: BAND NEUTROPHILS % (MANUAL) 0 % (0-8); BASOPHILS % (MANUAL) 0 % (0-2); EOSINOPHILS % (MANUAL) 8 % (0-3); LYMPHOCYTES % (MANUAL) 30 % (20-45); NEUTROPHILS % (MANUAL) 56 % (45-75); PLATELET ESTIMATE ADEQUATE; PLATELET MORPHOLOGY NORMAL; TOTAL CELLS COUNTED 100
--- NOTE | 2017-03-19 13:20 | General Progress Note ---
Progress Note Progress Note Decubitus clean, nothing surgical at this time. VENTURA PANTOJA Mar 19, 2017 13:20
--- NOTE | 2017-03-19 14:02 | Pulmonology Progress Note ---
Assessment/Plan Problems: (1) Cellulitis (2) UTI (urinary tract infection) (3) Osteomyelitis (4) Sacral decubitus ulcer Assessment/Plan improving continue abx check cultures dvt, will start on heparin drip and coumadin surgical consult appreciated IV antibiotics for 42 days. Subjective ROS Limited/Unobtainable: No Constitutional: Reports: no symptoms HEENT: Repors: no symptoms Respiratory: Reports: no symptoms Allergies: Coded Allergies: SULFA (SULFONAMIDE ANTIBIOTICS) (Verified Allergy, Intermediate, 03/14/17) MORPHINE (Verified Adverse Reaction, Intermediate, GI UPSET AND SHAKES, 17/08) Uncoded Allergies: PAIN KILLER (Allergy, Mild, 06/17/12) CANNOT REMEMBER NAME OF PAIN KILLER Objective Last 24 Hour Vital Signs Date Time Temp Pulse Resp B/P Pulse Ox O2 Delivery O2 Flow Rate FiO2 03/19/17 12:00 97.9 81 20 106/52 98 Room Air 03/19/17 08:00 97.5 84 20 109/66 94 Room Air 03/19/17 07:45 84 18 Room Air 03/19/17 04:00 98.1 90 20 126/70 97 Room Air 03/19/17 00:00 97.9 87 20 106/66 98 Room Air 03/18/17 20:44 84 18 Room Air 21 03/18/17 20:00 97.3 84 20 105/65 99 Room Air 03/18/17 16:00 98.3 83 20 108/68 97 Room Air Intake and Output 03/18/17 03/19/17 19:00 07:00 Intake Total 1196.684 ml 250 ml Output Total 1200 ml 1850 ml Balance -3.316 ml -1600 ml Intake Oral 840 ml IV Total 356.684 ml 250 ml Output Urine Total 1200 ml 1850 ml Objective General Appearance: WD/WN HEENT: normocephalic Respiratory/Chest: chest wall non-tender, lungs clear Breasts: no masses Cardiovascular: normal peripheral pulses Abdomen: normal bowel sounds, soft, non tender Genitourinary: normal external genitalia Skin: no rash, extensive deep sacral decubiti Laboratory Tests 03/18/17 19:00: Activated Partial Thromboplast Time 29 03/19/17 02:30: Activated Partial Thromboplast Time > 150*H 03/19/17 11:10: Activated Partial Thromboplast Time 64H, White Blood Count 8.1, Red Blood Count 4.64, Hemoglobin 12.1, Hematocrit 38.7, Mean Corpuscular Volume 83, Mean Corpuscular Hemoglobin 26.1L, Mean Corpuscular Hemoglobin Concent 31.3L, Red Cell Distribution Width 15.0H, Platelet Count 321, Mean Platelet Volume 6.1L, Neutrophils (%) (Auto) , Lymphocytes (%) (Auto) , Monocytes (%) (Auto) , Eosinophils (%) (Auto) , Basophils (%) (Auto) , Differential Total Cells Counted 100, Neutrophils % (Manual) 56, Lymphocytes % (Manual) 30, Monocytes % ( Manual) 6, Eosinophils % (Manual) 8H, Basophils % (Manual) 0, Band Neutrophils 0 , Platelet Estimate Adequate, Platelet Morphology Normal, Red Blood Cell Morphology Normal, Lupus Anticoagulant [Pending], Lupus Anticoagulant PTT Baseline [Pending], Lupus Anticoag DRVVT Screen Ratio [Pending], DRVVT Confirmation Interpretation [Pending], Hexagonal Phase Comment [Pending], Anti- Thrombin III Activity [Pending], Factor V Mutation [Pending], Prothrombin Gene Mutation [Pending], Prothrombin Gene Shared Component [Pending], Alpha Fetoprotein [Pending], Carcinoembryonic Antigen 2.8, CA 15-3 Antigen [Pending], CA 19-9 Antigen 0.600, CA 125 Antigen [Pending] Current Medications Medications (Trade) Dose Ordered Sig/Tatiana Route PRN Reason Start Time Stop Time Status Last Admin Dose Admin Acetaminophen (Tylenol) 650 mg Q4H PRN ORAL fever 03/14/17 19:30 04/13/17 19:29 03/15/17 05:07 Albuterol/ Ipratropium (DuoNeb 0.5-3(2.5)mg/3ml) 3 ml Q4H PRN HHN Shortness of Breath 03/14/17 19:30 03/19/17 19:29 Amitriptyline HCl (Elavil) 50 mg BEDTIME ORAL 03/14/17 21:00 04/13/17 20:59 03/18/17 20:19 Chlorhexidine Gluconate 1 applic 1 applic DAILY TOPIC 03/15/17 09:00 04/14/17 08:59 03/19/17 08:33 Dextrose (Dextrose 50%) STAT PRN IV Hypoglycemia 03/14/17 19:30 04/13/17 19:29 Ertapenem 1 gm/ Sodium Chloride 55 ml @ 110 mls/hr Q24H IVPB 03/17/17 14:00 03/22/17 13:59 03/19/17 13:13 Fentanyl (Duragesic) 1 patch Q72H TDERMAL 03/14/17 22:00 03/21/17 21:59 03/17/17 22:16 Gabapentin (Neurontin) 300 mg TID ORAL 03/14/17 21:00 04/13/17 20:59 03/19/17 13:13 Heparin Sodium/ Dextrose (Heparin) 500 ml @ 30.481 mls/ hr adjust per protocol IV 03/19/17 05:10 04/18/17 05:09 03/19/17 12:37 Lorazepam (Ativan) 0.5 mg Q6H PRN ORAL For Anxiety 03/14/17 20:30 03/21/17 20:29 Miscellaneous Medication (fentaNYL Destruction) 1 ea Q72H MISC 03/17/17 22:00 03/21/17 21:59 03/17/17 22:12 Naloxone HCl (Narcan) 0.1 mg PRN IV Sedation scale 3 or 4 03/14/17 22:00 03/21/17 21:59 Nitroglycerin (Ntg) 0.4 mg Q5MIN PRN SL Prn Chest Pain 03/14/17 19:30 04/13/17 19:29 Ondansetron HCl (Zofran) 4 mg Q6H PRN IVP Nausea & Vomiting 03/14/17 19:30 04/13/17 19:29 Oxycodone HCl (Roxicodone) 20 mg Q6H PRN ORAL For Breakthrough Pain 03/14/17 19:30 03/21/17 19:29 03/19/17 11:38 Polyethylene Glycol (Miralax) 17 gm DAILYPRN PRN ORAL Constipation 03/14/17 19:30 04/13/17 19:29 Temazepam (Restoril) 15 mg HSPRN PRN ORAL Insomnia 03/14/17 19:30 03/21/17 19:29 Vancomycin HCl (Vanco rx to dose) 1 ea DAILY PRN MISC PRN RX PROTOCOL 03/14/17 22:00 04/13/17 21:59 Vancomycin HCl/ Dextrose 250 ml @ 125 mls/hr Q12HR IVPB 03/18/17 09:00 03/23/17 08:59 03/19/17 08:33 NIKIA CAMPBELL Mar 19, 2017 14:02
[2017-03-19 16:00] VITALS: BP 105/76
[2017-03-19 20:00] VITALS: BP 96/63
--- NOTE | 2017-03-19 20:24 | General Progress Note ---
Assessment/Plan Assessment/Plan #Deep venous thrombosis of the left leg femoral vein --> has been started on heparin drip and coumadin --> INR goal 2-3 #Osteomyelitis potential secondary to decubitus ulceration --> on abx per ID service # Cellulitis # Urinary tract infection # Multiple sclerosis Subjective Constitutional: Reports: no symptoms HEENT: Reports: no symptoms Cardiovascular: Reports: no symptoms Respiratory: Reports: no symptoms Gastrointestinal/Abdominal: Reports: no symptoms Genitourinary: Reports: no symptoms Neurologic/Psychiatric: Reports: no symptoms Endocrine: Reports: no symptoms Hematologic/Lymphatic: Reports: no symptoms Allergies: Coded Allergies: SULFA (SULFONAMIDE ANTIBIOTICS) (Verified Allergy, Intermediate, 03/14/17) MORPHINE (Verified Adverse Reaction, Intermediate, GI UPSET AND SHAKES, 17/08) Uncoded Allergies: PAIN KILLER (Allergy, Mild, 06/17/12) CANNOT REMEMBER NAME OF PAIN KILLER Subjective nad Objective Last 24 Hour Vital Signs Date Time Temp Pulse Resp B/P Pulse Ox O2 Delivery O2 Flow Rate FiO2 03/19/17 20:11 83 18 Room Air 21 03/19/17 20:00 97.7 86 20 96/63 95 Room Air 03/19/17 16:00 97.5 88 20 105/76 98 Room Air 03/19/17 12:00 97.9 81 20 106/52 98 Room Air 03/19/17 08:00 97.5 84 20 109/66 94 Room Air 03/19/17 07:45 84 18 Room Air 21 03/19/17 04:00 98.1 90 20 126/70 97 Room Air 03/19/17 00:00 97.9 87 20 106/66 98 Room Air 03/18/17 20:44 84 18 Room Air 21 Intake and Output 03/18/17 03/19/17 19:00 07:00 Intake Total 1196.684 ml 250 ml Output Total 1200 ml 1850 ml Balance -3.316 ml -1600 ml Intake Oral 840 ml IV Total 356.684 ml 250 ml Output Urine Total 1200 ml 1850 ml Laboratory Tests 03/19/17 02:30: Activated Partial Thromboplast Time > 150*H 03/19/17 11:10: Activated Partial Thromboplast Time 64H, White Blood Count 8.1, Red Blood Count 4.64, Hemoglobin 12.1, Hematocrit 38.7, Mean Corpuscular Volume 83, Mean Corpuscular Hemoglobin 26.1L, Mean Corpuscular Hemoglobin Concent 31.3L, Red Cell Distribution Width 15.0H, Platelet Count 321, Mean Platelet Volume 6.1L, Neutrophils (%) (Auto) , Lymphocytes (%) (Auto) , Monocytes (%) (Auto) , Eosinophils (%) (Auto) , Basophils (%) (Auto) , Differential Total Cells Counted 100, Neutrophils % (Manual) 56, Lymphocytes % (Manual) 30, Monocytes % ( Manual) 6, Eosinophils % (Manual) 8H, Basophils % (Manual) 0, Band Neutrophils 0 , Platelet Estimate Adequate, Platelet Morphology Normal, Red Blood Cell Morphology Normal, Lupus Anticoagulant [Pending], Lupus Anticoagulant PTT Baseline [Pending], Lupus Anticoag DRVVT Screen Ratio [Pending], DRVVT Confirmation Interpretation [Pending], Hexagonal Phase Comment [Pending], Anti- Thrombin III Activity [Pending], Factor V Mutation [Pending], Prothrombin Gene Mutation [Pending], Prothrombin Gene Shared Component [Pending], Alpha Fetoprotein [Pending], Carcinoembryonic Antigen 2.8, CA 15-3 Antigen [Pending], CA 19-9 Antigen 0.600, CA 125 Antigen [Pending] 03/19/17 18:30: Activated Partial Thromboplast Time 58H Height (Feet): 5 Height (Inches): 9.00 Weight (Pounds): 210 General Appearance: no apparent distress EENT: normal ENT inspection Neck: supple Cardiovascular: normal rate Respiratory/Chest: lungs clear Abdomen: non tender Edema: mild edema Neurologic: no motor/sensory deficits Skin: warm/dry Amandeep Art Mar 19, 2017 20:24
[2017-03-20] VITALS (7 sets, daily range): BP systolic 96–107; BP diastolic 58–81
[2017-03-20] MEDS: Heparin 25,000u/D5W 500ml 500 ML IV SCH ×2 (01:00→14:58)
[2017-03-20 02:44] LABS: ALANINE AMINOTRANSFERASE 11 U/L (3-33); ALBUMIN/GLOBULIN RATIO 0.7 (1.0-2.7); ANION GAP 13 (5-15); ASPARTATE AMINO TRANSFERASE 26 U/L (5-40); CALCIUM 8.7 mg/dL (8.6-10.2); CARBON DIOXIDE 23 mEQ/L (20-30); CHLORIDE 102 mEQ/L (98-107); CREATININE 0.5 mg/dL (0.5-0.9); GLOMERULAR FILTRATION RATE > 60 mL/min (>60); HEMOLYSIS 26; MAGNESIUM 1.7 mg/dL (1.7-2.5); PHOSPHORUS 3.3 mg/dL (2.5-4.8); POTASSIUM 4.4 mEQ/L (3.4-4.9); SODIUM 138 mEQ/L (135-145); TOTAL PROTEIN 6.5 g/dL (6.6-8.7)
[2017-03-20 02:53] LABS: EOSINOPHILS % (AUTO) 6.2 % (0.0-3.0); LYMPHOCYTES % (AUTO) 30.5 % (20.0-45.0); MEAN CORPUSCULAR HEMOGLOBIN 27.3 PG (27.0-31.0); MEAN CORPUSCULAR VOLUME 83 FL (80-99); MEAN PLATELET VOLUME 6.7 FL (6.5-10.1); MONOCYTES % (AUTO) 7.6 % (1.0-10.0); NEUTROPHILS % (AUTO) 54.8 % (45.0-75.0); PLATELET COUNT 216 K/UL (150-450); RED BLOOD COUNT 4.66 M/UL (4.20-5.40); WHITE BLOOD COUNT 8.5 K/UL (4.8-10.8)
[2017-03-20] MEDS: oxyCODONE 5mg IR tab ORAL PRN ×2 (05:36→20:52)
[2017-03-20] MEDS: Dyna-Hex 2% Top Sol 8oz TOPIC SCH (08:36)
--- NOTE | 2017-03-20 09:32 | Infectious Diseases Prog Note ---
Assessment/Plan Assessment/Plan ASSESSMENT: 51 y/o female with: // Chronic sacrococcygeal osteomyelitis - WCx 4+ ESBL(+) E.coli, diptheroids // Stage IV sacral decubitus ulcer POA - seen by surgery not planning any debridement or flap // Leukocytosis - resolved, afebrile // Multiple sclerosis // Acute LLE DVT // Bedbound // NH resident // Sulfa allergy // DNR, hospice PLAN: - continue IV vancomycin, invanz ABX d# - weekly CBC, CMP, ESR, CRP while on IV ABX - f/u cultures - wound care Subjective Allergies: Coded Allergies: SULFA (SULFONAMIDE ANTIBIOTICS) (Verified Allergy, Intermediate, 03/14/17) MORPHINE (Verified Adverse Reaction, Intermediate, GI UPSET AND SHAKES, 17/08) Uncoded Allergies: PAIN KILLER (Allergy, Mild, 06/17/12) CANNOT REMEMBER NAME OF PAIN KILLER Subjective remains afebrile no new complaint Objective Vital Signs Last 24 Hour Vital Signs Date Time Temp Pulse Resp B/P Pulse Ox O2 Delivery O2 Flow Rate FiO2 03/20/17 08:15 98.1 89 11 100/71 97 Room Air 03/20/17 07:37 86 16 Room Air 03/20/17 04:00 97.3 88 20 107/81 98 Room Air 03/20/17 00:00 97.7 84 18 96/58 95 Room Air 03/19/17 20:11 83 18 Room Air 21 03/19/17 20:00 97.7 86 20 96/63 95 Room Air 03/19/17 16:00 97.5 88 20 105/76 98 Room Air 03/19/17 12:00 97.9 81 20 106/52 98 Room Air Height (Feet): 5 Height (Inches): 9.00 Weight (Pounds): 210 General Appearance: no acute distress Respiratory/Chest: no respiratory distress Cardiovascular: normal rate, regular rhythm Abdomen: normal bowel sounds, soft, non tender, non distended Laboratory Tests Test 03/19/17 11:10 03/19/17 18:30 03/19/17 20:15 03/20/17 02:00 White Blood Count 8.1 K/UL (4.8-10.8) 8.5 K/UL (4.8-10.8) Red Blood Count 4.64 M/UL (4.20-5.40) 4.66 M/UL (4.20-5.40) Hemoglobin 12.1 G/DL (12.0-16.0) 12.7 G/DL (12.0-16.0) Hematocrit 38.7 % (37.0-47.0) 38.7 % (37.0-47.0) Mean Corpuscular Volume 83 FL (80-99) 83 FL (80-99) Mean Corpuscular Hemoglobin 26.1 PG (27.0-31.0) L 27.3 PG (27.0-31.0) Mean Corpuscular Hemoglobin Concent 31.3 G/DL (32.0-36.0) L 33.0 G/DL (32.0-36.0) Red Cell Distribution Width 15.0 % (11.6-14.8) H 15.0 % (11.6-14.8) H Platelet Count 321 K/UL (150-450) 216 K/UL (150-450) Mean Platelet Volume 6.1 FL (6.5-10.1) L 6.7 FL (6.5-10.1) Neutrophils (%) (Auto) % (45.0-75.0) 54.8 % (45.0-75.0) Lymphocytes (%) (Auto) % (20.0-45.0) 30.5 % (20.0-45.0) Monocytes (%) (Auto) % (1.0-10.0) 7.6 % (1.0-10.0) Eosinophils (%) (Auto) % (0.0-3.0) 6.2 % (0.0-3.0) H Basophils (%) (Auto) % (0.0-2.0) 1.0 % (0.0-2.0) Differential Total Cells Counted 100 Neutrophils % (Manual) 56 % (45-75) Lymphocytes % (Manual) 30 % (20-45) Monocytes % (Manual) 6 % (1-10) Eosinophils % (Manual) 8 % (0-3) H Basophils % (Manual) 0 % (0-2) Band Neutrophils 0 % (0-8) Platelet Estimate Adequate Platelet Morphology Normal Red Blood Cell Morphology Normal Activated Partial Thromboplast Time 64 SEC (23-33) H 58 SEC (23-33) H 81 SEC (23-33) H Lupus Anticoagulant Pending Lupus Anticoagulant PTT Baseline Pending Lupus Anticoag DRVVT Screen Ratio Pending DRVVT Confirmation Interpretation Pending Hexagonal Phase Comment Pending Anti-Thrombin III Activity Pending Factor V Mutation Pending Prothrombin Gene Mutation Pending Prothrombin Gene Shared Component Pending Alpha Fetoprotein Pending Carcinoembryonic Antigen 2.8 ng/mL CA 15-3 Antigen Pending CA 19-9 Antigen 0.600 U/mL (< 37) CA 125 Antigen Pending Vancomycin Level Trough 19.1 ug/mL (5.0-12.0) H Sodium Level 138 mEQ/L (135-145) Potassium Level 4.4 mEQ/L (3.4-4.9) Chloride Level 102 mEQ/L (98-107) Carbon Dioxide Level 23 mEQ/L (20-30) Anion Gap 13 (5-15) Blood Urea Nitrogen 6 mg/dL (7-23) L Creatinine 0.5 mg/dL (0.5-0.9) Estimat Glomerular Filtration Rate > 60 mL/min (>60) Glucose Level 95 mg/dL (74-106) Calcium Level 8.7 mg/dL (8.6-10.2) Phosphorus Level 3.3 mg/dL (2.5-4.8) Magnesium Level 1.7 mg/dL (1.7-2.5) Total Bilirubin < 0.2 mg/dL (0.0-1.2) Aspartate Amino Transf (AST/SGOT) 26 U/L (5-40) Alanine Aminotransferase (ALT/SGPT) 11 U/L (3-33) Alkaline Phosphatase 97 U/L (35-104) Total Protein 6.5 g/dL (6.6-8.7) L Albumin 2.8 g/dL (3.5-5.2) L Globulin 3.7 g/dL Albumin/Globulin Ratio 0.7 (1.0-2.7) L Current Medications Medications (Trade) Dose Ordered Sig/Tatiana Route PRN Reason Start Time Stop Time Status Last Admin Dose Admin Acetaminophen (Tylenol) 650 mg Q4H PRN ORAL fever 03/14/17 19:30 04/13/17 19:29 03/15/17 05:07 Amitriptyline HCl (Elavil) 50 mg BEDTIME ORAL 03/14/17 21:00 04/13/17 20:59 03/19/17 20:20 Chlorhexidine Gluconate 1 applic 1 applic DAILY TOPIC 03/15/17 09:00 04/14/17 08:59 03/20/17 08:36 Dextrose (Dextrose 50%) STAT PRN IV Hypoglycemia 03/14/17 19:30 04/13/17 19:29 Ertapenem 1 gm/ Sodium Chloride 55 ml @ 110 mls/hr Q24H IVPB 03/17/17 14:00 03/22/17 13:59 03/19/17 13:13 Fentanyl (Duragesic) 1 patch Q72H TDERMAL 03/14/17 22:00 03/21/17 21:59 03/17/17 22:16 Gabapentin (Neurontin) 300 mg TID ORAL 03/14/17 21:00 04/13/17 20:59 03/20/17 08:36 Heparin Sodium/ Dextrose (Heparin) 500 ml @ 34.291 mls/ hr adjust per protocol IV 03/19/17 19:43 04/18/17 05:09 03/20/17 01:00 Lorazepam (Ativan) 0.5 mg Q6H PRN ORAL For Anxiety 03/14/17 20:30 03/21/17 20:29 Miscellaneous Medication (fentaNYL Destruction) 1 ea Q72H MISC 03/17/17 22:00 03/21/17 21:59 03/17/17 22:12 Naloxone HCl (Narcan) 0.1 mg PRN IV Sedation scale 3 or 4 03/14/17 22:00 03/21/17 21:59 Nitroglycerin (Ntg) 0.4 mg Q5MIN PRN SL Prn Chest Pain 03/14/17 19:30 04/13/17 19:29 Ondansetron HCl (Zofran) 4 mg Q6H PRN IVP Nausea & Vomiting 03/14/17 19:30 04/13/17 19:29 Oxycodone HCl (Roxicodone) 20 mg Q6H PRN ORAL For Breakthrough Pain 03/14/17 19:30 03/21/17 19:29 03/20/17 05:36 Polyethylene Glycol (Miralax) 17 gm DAILYPRN PRN ORAL Constipation 03/14/17 19:30 04/13/17 19:29 Temazepam (Restoril) 15 mg HSPRN PRN ORAL Insomnia 03/14/17 19:30 03/21/17 19:29 Vancomycin HCl (Vanco rx to dose) 1 ea DAILY PRN MISC PRN RX PROTOCOL 03/14/17 22:00 04/13/17 21:59 Vancomycin HCl/ Dextrose 250 ml @ 125 mls/hr Q12HR IVPB 03/18/17 09:00 03/23/17 08:59 03/19/17 22:20 LUZ LOPEZ Mar 20, 2017 09:32
--- NOTE | 2017-03-20 10:08 | General Surgery Progress Note ---
General Surgery-Progress Note Subjective Symptoms: improved Additional Comments doing well. no acute issues Objective Last 24 Hour Vital Signs Date Time Temp Pulse Resp B/P Pulse Ox O2 Delivery O2 Flow Rate FiO2 03/20/17 08:15 98.1 89 11 100/71 97 Room Air 03/20/17 07:37 86 16 Room Air 03/20/17 04:00 97.3 88 20 107/81 98 Room Air 03/20/17 00:00 97.7 84 18 96/58 95 Room Air 03/19/17 20:11 83 18 Room Air 21 03/19/17 20:00 97.7 86 20 96/63 95 Room Air 03/19/17 16:00 97.5 88 20 105/76 98 Room Air 03/19/17 12:00 97.9 81 20 106/52 98 Room Air I&O Intake and Output 03/19/17 03/20/17 19:00 07:00 Intake Total 1070.747 ml 455.746 ml Output Total 1750 ml 550 ml Balance -679.253 ml -94.254 ml Intake Oral 560 ml IV Total 510.747 ml 455.746 ml Output Urine Total 1750 ml 550 ml Cardiovascular: RSR Respiratory: clear Abdomen: soft, non-tender, present bowel sounds Extremities: no tenderness Laboratory Tests Test 03/19/17 11:10 03/19/17 18:30 03/19/17 20:15 03/20/17 02:00 White Blood Count 8.1 K/UL (4.8-10.8) 8.5 K/UL (4.8-10.8) Red Blood Count 4.64 M/UL (4.20-5.40) 4.66 M/UL (4.20-5.40) Hemoglobin 12.1 G/DL (12.0-16.0) 12.7 G/DL (12.0-16.0) Hematocrit 38.7 % (37.0-47.0) 38.7 % (37.0-47.0) Mean Corpuscular Volume 83 FL (80-99) 83 FL (80-99) Mean Corpuscular Hemoglobin 26.1 PG (27.0-31.0) L 27.3 PG (27.0-31.0) Mean Corpuscular Hemoglobin Concent 31.3 G/DL (32.0-36.0) L 33.0 G/DL (32.0-36.0) Red Cell Distribution Width 15.0 % (11.6-14.8) H 15.0 % (11.6-14.8) H Platelet Count 321 K/UL (150-450) 216 K/UL (150-450) Mean Platelet Volume 6.1 FL (6.5-10.1) L 6.7 FL (6.5-10.1) Neutrophils (%) (Auto) % (45.0-75.0) 54.8 % (45.0-75.0) Lymphocytes (%) (Auto) % (20.0-45.0) 30.5 % (20.0-45.0) Monocytes (%) (Auto) % (1.0-10.0) 7.6 % (1.0-10.0) Eosinophils (%) (Auto) % (0.0-3.0) 6.2 % (0.0-3.0) H Basophils (%) (Auto) % (0.0-2.0) 1.0 % (0.0-2.0) Differential Total Cells Counted 100 Neutrophils % (Manual) 56 % (45-75) Lymphocytes % (Manual) 30 % (20-45) Monocytes % (Manual) 6 % (1-10) Eosinophils % (Manual) 8 % (0-3) H Basophils % (Manual) 0 % (0-2) Band Neutrophils 0 % (0-8) Platelet Estimate Adequate Platelet Morphology Normal Red Blood Cell Morphology Normal Activated Partial Thromboplast Time 64 SEC (23-33) H 58 SEC (23-33) H 81 SEC (23-33) H Lupus Anticoagulant Pending Lupus Anticoagulant PTT Baseline Pending Lupus Anticoag DRVVT Screen Ratio Pending DRVVT Confirmation Interpretation Pending Hexagonal Phase Comment Pending Anti-Thrombin III Activity Pending Factor V Mutation Pending Prothrombin Gene Mutation Pending Prothrombin Gene Shared Component Pending Alpha Fetoprotein Pending Carcinoembryonic Antigen 2.8 ng/mL CA 15-3 Antigen Pending CA 19-9 Antigen 0.600 U/mL (< 37) CA 125 Antigen Pending Vancomycin Level Trough 19.1 ug/mL (5.0-12.0) H Sodium Level 138 mEQ/L (135-145) Potassium Level 4.4 mEQ/L (3.4-4.9) Chloride Level 102 mEQ/L (98-107) Carbon Dioxide Level 23 mEQ/L (20-30) Anion Gap 13 (5-15) Blood Urea Nitrogen 6 mg/dL (7-23) L Creatinine 0.5 mg/dL (0.5-0.9) Estimat Glomerular Filtration Rate > 60 mL/min (>60) Glucose Level 95 mg/dL (74-106) Calcium Level 8.7 mg/dL (8.6-10.2) Phosphorus Level 3.3 mg/dL (2.5-4.8) Magnesium Level 1.7 mg/dL (1.7-2.5) Total Bilirubin < 0.2 mg/dL (0.0-1.2) Aspartate Amino Transf (AST/SGOT) 26 U/L (5-40) Alanine Aminotransferase (ALT/SGPT) 11 U/L (3-33) Alkaline Phosphatase 97 U/L (35-104) Total Protein 6.5 g/dL (6.6-8.7) L Albumin 2.8 g/dL (3.5-5.2) L Globulin 3.7 g/dL Albumin/Globulin Ratio 0.7 (1.0-2.7) L Plan Problems: (1) Sacral decubitus ulcer Assessment & Plan: 51F stage 4 sacral decubitus ulcer. wound clean with good granulation tissue. afebrile, HD stable, labs okay. No acute surgical intervention necessary continue with current wound care as written for by wound team will monitor wound while in [facility] Bryan Richardson Mar 20, 2017 10:08
[2017-03-20] MEDS: Vancomycin 1.5gm/D5W 250ml 250 ML IVPB SCH ×2 (10:26→21:22)
--- NOTE | 2017-03-20 14:55 | Pulmonology Progress Note ---
Assessment/Plan Problems: (1) Osteomyelitis (2) DVT (deep venous thrombosis) (3) Cellulitis (4) UTI (urinary tract infection) (5) Sacral decubitus ulcer Assessment/Plan improving continue abx check cultures dvt, will start on heparin drip and coumadin surgical consult appreciated IV antibiotics for 42 days. Subjective ROS Limited/Unobtainable: No Constitutional: Reports: no symptoms HEENT: Repors: no symptoms Respiratory: Reports: no symptoms Cardiovascular: Reports: no symptoms Allergies: Coded Allergies: SULFA (SULFONAMIDE ANTIBIOTICS) (Verified Allergy, Intermediate, 03/14/17) MORPHINE (Verified Adverse Reaction, Intermediate, GI UPSET AND SHAKES, 17/08) Uncoded Allergies: PAIN KILLER (Allergy, Mild, 06/17/12) CANNOT REMEMBER NAME OF PAIN KILLER Objective Last 24 Hour Vital Signs Date Time Temp Pulse Resp B/P Pulse Ox O2 Delivery O2 Flow Rate FiO2 03/20/17 11:54 97.7 94 16 101/71 96 Room Air 03/20/17 08:15 98.1 89 11 100/71 97 Room Air 03/20/17 07:37 86 16 Room Air 03/20/17 04:00 97.3 88 20 107/81 98 Room Air 03/20/17 00:00 97.7 84 18 96/58 95 Room Air 03/19/17 20:11 83 18 Room Air 03/19/17 20:00 97.7 86 20 96/63 95 Room Air 03/19/17 16:00 97.5 88 20 105/76 98 Room Air Intake and Output 03/19/17 03/20/17 19:00 07:00 Intake Total 1070.747 ml 455.746 ml Output Total 1750 ml 550 ml Balance -679.253 ml -94.254 ml Intake Oral 560 ml IV Total 510.747 ml 455.746 ml Output Urine Total 1750 ml 550 ml Objective General Appearance: WD/WN HEENT: normocephalic Respiratory/Chest: chest wall non-tender, lungs clear Breasts: no masses Cardiovascular: normal peripheral pulses Abdomen: normal bowel sounds, soft, non tender Genitourinary: normal external genitalia Skin: no rash, extensive deep sacral decubiti Laboratory Tests 03/19/17 18:30: Activated Partial Thromboplast Time 58H 03/19/17 20:15: Vancomycin Level Trough 19.1H 03/20/17 02:00: Activated Partial Thromboplast Time 81H, White Blood Count 8.5, Red Blood Count 4.66, Hemoglobin 12.7, Hematocrit 38.7, Mean Corpuscular Volume 83, Mean Corpuscular Hemoglobin 27.3, Mean Corpuscular Hemoglobin Concent 33.0, Red Cell Distribution Width 15.0H, Platelet Count 216, Mean Platelet Volume 6.7, Neutrophils (%) (Auto) 54.8, Lymphocytes (%) (Auto) 30.5, Monocytes (%) (Auto) 7.6, Eosinophils (%) (Auto) 6.2H, Basophils (%) (Auto) 1.0, Sodium Level 138, Potassium Level 4.4, Chloride Level 102, Carbon Dioxide Level 23, Anion Gap 13, Blood Urea Nitrogen 6L, Creatinine 0.5, Estimat Glomerular Filtration Rate > 60 , Glucose Level 95, Calcium Level 8.7, Phosphorus Level 3.3, Magnesium Level 1.7 , Total Bilirubin < 0.2, Aspartate Amino Transf (AST/SGOT) 26, Alanine Aminotransferase (ALT/SGPT) 11, Alkaline Phosphatase 97, Total Protein 6.5L, Albumin 2.8L, Globulin 3.7, Albumin/Globulin Ratio 0.7L Current Medications Medications (Trade) Dose Ordered Sig/Tatiana Route PRN Reason Start Time Stop Time Status Last Admin Dose Admin Acetaminophen (Tylenol) 650 mg Q4H PRN ORAL fever 03/14/17 19:30 04/13/17 19:29 03/15/17 05:07 Amitriptyline HCl (Elavil) 50 mg BEDTIME ORAL 03/14/17 21:00 04/13/17 20:59 03/19/17 20:20 Chlorhexidine Gluconate 1 applic 1 applic DAILY TOPIC 03/15/17 09:00 04/14/17 08:59 03/20/17 08:36 Dextrose (Dextrose 50%) STAT PRN IV Hypoglycemia 03/14/17 19:30 04/13/17 19:29 Ertapenem 1 gm/ Sodium Chloride 55 ml @ 110 mls/hr Q24H IVPB 03/17/17 14:00 03/22/17 13:59 03/19/17 13:13 Fentanyl (Duragesic) 1 patch Q72H TDERMAL 03/14/17 22:00 03/21/17 21:59 03/17/17 22:16 Gabapentin (Neurontin) 300 mg TID ORAL 03/14/17 21:00 04/13/17 20:59 03/20/17 12:46 Heparin Sodium/ Dextrose (Heparin) 500 ml @ 34.291 mls/ hr adjust per protocol IV 03/19/17 19:43 04/18/17 05:09 03/20/17 01:00 Lorazepam (Ativan) 0.5 mg Q6H PRN ORAL For Anxiety 03/14/17 20:30 03/21/17 20:29 Miscellaneous Medication (fentaNYL Destruction) 1 ea Q72H MISC 03/17/17 22:00 03/21/17 21:59 03/17/17 22:12 Naloxone HCl (Narcan) 0.1 mg PRN IV Sedation scale 3 or 4 03/14/17 22:00 03/21/17 21:59 Nitroglycerin (Ntg) 0.4 mg Q5MIN PRN SL Prn Chest Pain 03/14/17 19:30 04/13/17 19:29 Ondansetron HCl (Zofran) 4 mg Q6H PRN IVP Nausea & Vomiting 03/14/17 19:30 04/13/17 19:29 Oxycodone HCl (Roxicodone) 20 mg Q6H PRN ORAL For Breakthrough Pain 03/14/17 19:30 03/21/17 19:29 03/20/17 05:36 Polyethylene Glycol (Miralax) 17 gm DAILYPRN PRN ORAL Constipation 03/14/17 19:30 04/13/17 19:29 Temazepam (Restoril) 15 mg HSPRN PRN ORAL Insomnia 03/14/17 19:30 03/21/17 19:29 Vancomycin HCl (Vanco rx to dose) 1 ea DAILY PRN MISC PRN RX PROTOCOL 03/14/17 22:00 04/13/17 21:59 Vancomycin HCl/ Dextrose 250 ml @ 125 mls/hr Q12HR IVPB 03/18/17 09:00 03/23/17 08:59 03/20/17 10:26 NIKIA CAMPBELL Mar 20, 2017 14:55
[2017-03-20] MEDS: Ertapenem 1 GM in NS 55 ML IVPB SCH (14:56)
--- NOTE | 2017-03-20 15:08 | General Progress Note ---
Assessment/Plan Assessment/Plan #Deep venous thrombosis of the left leg femoral vein --> has been started on heparin drip and coumadin --> INR goal 2-3, continue to monitor #Osteomyelitis potential secondary to decubitus ulceration --> on abx per ID service # Stage 4 decubitis ulceration --> being seen by gen surg, surgery is not needed # Cellulitis # Urinary tract infection # Multiple sclerosis Subjective Constitutional: Reports: no symptoms HEENT: Reports: no symptoms Cardiovascular: Reports: no symptoms Respiratory: Reports: no symptoms Gastrointestinal/Abdominal: Reports: no symptoms Genitourinary: Reports: no symptoms Neurologic/Psychiatric: Reports: no symptoms Endocrine: Reports: no symptoms Hematologic/Lymphatic: Reports: anemia Allergies: Coded Allergies: SULFA (SULFONAMIDE ANTIBIOTICS) (Verified Allergy, Intermediate, 03/14/17) MORPHINE (Verified Adverse Reaction, Intermediate, GI UPSET AND SHAKES, 17/08) Uncoded Allergies: PAIN KILLER (Allergy, Mild, 06/17/12) CANNOT REMEMBER NAME OF PAIN KILLER Subjective labs pending, no events overnight Objective Last 24 Hour Vital Signs Date Time Temp Pulse Resp B/P Pulse Ox O2 Delivery O2 Flow Rate FiO2 03/20/17 11:54 97.7 94 16 101/71 96 Room Air 03/20/17 08:15 98.1 89 11 100/71 97 Room Air 03/20/17 07:37 86 16 Room Air 03/20/17 04:00 97.3 88 20 107/81 98 Room Air 03/20/17 00:00 97.7 84 18 96/58 95 Room Air 03/19/17 20:11 83 18 Room Air 03/19/17 20:00 97.7 86 20 96/63 95 Room Air 03/19/17 16:00 97.5 88 20 105/76 98 Room Air Intake and Output 03/19/17 03/20/17 19:00 07:00 Intake Total 1070.747 ml 455.746 ml Output Total 1750 ml 550 ml Balance -679.253 ml -94.254 ml Intake Oral 560 ml IV Total 510.747 ml 455.746 ml Output Urine Total 1750 ml 550 ml Laboratory Tests 03/19/17 18:30: Activated Partial Thromboplast Time 58H 03/19/17 20:15: Vancomycin Level Trough 19.1H 03/20/17 02:00: Activated Partial Thromboplast Time 81H, White Blood Count 8.5, Red Blood Count 4.66, Hemoglobin 12.7, Hematocrit 38.7, Mean Corpuscular Volume 83, Mean Corpuscular Hemoglobin 27.3, Mean Corpuscular Hemoglobin Concent 33.0, Red Cell Distribution Width 15.0H, Platelet Count 216, Mean Platelet Volume 6.7, Neutrophils (%) (Auto) 54.8, Lymphocytes (%) (Auto) 30.5, Monocytes (%) (Auto) 7.6, Eosinophils (%) (Auto) 6.2H, Basophils (%) (Auto) 1.0, Sodium Level 138, Potassium Level 4.4, Chloride Level 102, Carbon Dioxide Level 23, Anion Gap 13, Blood Urea Nitrogen 6L, Creatinine 0.5, Estimat Glomerular Filtration Rate > 60 , Glucose Level 95, Calcium Level 8.7, Phosphorus Level 3.3, Magnesium Level 1.7 , Total Bilirubin < 0.2, Aspartate Amino Transf (AST/SGOT) 26, Alanine Aminotransferase (ALT/SGPT) 11, Alkaline Phosphatase 97, Total Protein 6.5L, Albumin 2.8L, Globulin 3.7, Albumin/Globulin Ratio 0.7L Height (Feet): 5 Height (Inches): 9.00 Weight (Pounds): 210 General Appearance: no apparent distress EENT: normal ENT inspection Neck: non-tender Cardiovascular: normal rate Respiratory/Chest: chest wall non-tender Edema: no edema noted Pedal (L), no edema noted Pedal (R) Neurologic: community director II-XII grossly normal Skin: warm/dry Amandeep Art Mar 20, 2017 15:08
[2017-03-20 16:18] LABS: INR 1.1 (0.9-1.1); PROTHROMBIN TIME 11.6 SEC (9.30-11.50)
[2017-03-20] MEDS: Warfarin Sodium 7.5mg ORAL SCH (17:50)
[2017-03-20] MEDS: fentaNYL Destruction MISC SCH (22:18)
[2017-03-21] VITALS: BP 100/66
[2017-03-21 03:47] VITALS: BP 101/67
[2017-03-21 05:52] LABS: INR 1.2 (0.9-1.1); PROTHROMBIN TIME 12.2 SEC (9.30-11.50)
[2017-03-21] MEDS: Heparin 25,000u/D5W 500ml 500 ML IV SCH ×2 (06:48→23:36)
[2017-03-21 08:03] VITALS: BP 102/73
[2017-03-21 08:12] LABS: CA 125 10.5 U/mL (0.0-38.1); CA15-3 18.2 U/mL (0.0-25.0)
[2017-03-21] MEDS: Dyna-Hex 2% Top Sol 8oz TOPIC SCH (09:14)
[2017-03-21] MEDS: Vancomycin 1.5gm/D5W 250ml 250 ML IVPB SCH ×2 (09:15→23:03)
[2017-03-21 11:43] VITALS: BP 107/65
--- NOTE | 2017-03-21 14:21 | Infectious Diseases Prog Note ---
Assessment/Plan Assessment/Plan ASSESSMENT: 51 y/o female with: // Chronic sacrococcygeal osteomyelitis - WCx 4+ ESBL(+) E.coli, diptheroids // Stage IV sacral decubitus ulcer POA - seen by surgery not planning any debridement or flap // Leukocytosis - resolved, afebrile // Multiple sclerosis // Acute LLE DVT, on coumadin // Bedbound // NH resident // Sulfa allergy // DNR, hospice PLAN: - continue IV vancomycin, invanz ABX d# - weekly CBC, CMP, ESR, CRP while on IV ABX - f/u cultures - wound care Subjective Allergies: Coded Allergies: SULFA (SULFONAMIDE ANTIBIOTICS) (Verified Allergy, Intermediate, 03/14/17) MORPHINE (Verified Adverse Reaction, Intermediate, GI UPSET AND SHAKES, 17/08) Uncoded Allergies: PAIN KILLER (Allergy, Mild, 06/17/12) CANNOT REMEMBER NAME OF PAIN KILLER Subjective remains afebrile no new complaint DC planning ongoing Objective Vital Signs Last 24 Hour Vital Signs Date Time Temp Pulse Resp B/P Pulse Ox O2 Delivery O2 Flow Rate FiO2 03/21/17 11:43 97.6 84 21 107/65 97 Room Air 03/21/17 08:20 90 16 Room Air 03/21/17 08:03 97.3 82 20 102/73 97 Room Air 03/21/17 03:47 97.9 85 18 101/67 97 Room Air 03/21/17 00:00 97.9 87 20 100/66 96 Room Air 21 03/20/17 22:50 98.0 03/20/17 20:52 20 105/67 03/20/17 20:35 92 16 Room Air 21 03/20/17 20:00 98.0 90 20 97/60 100 Room Air 21 03/20/17 16:00 98.3 94 19 100/60 99 Room Air Height (Feet): 5 Height (Inches): 9.00 Weight (Pounds): 210 General Appearance: no acute distress Respiratory/Chest: no respiratory distress Cardiovascular: normal rate, regular rhythm Abdomen: normal bowel sounds, soft, non tender, non distended Laboratory Tests Test 03/20/17 15:55 03/21/17 04:20 03/21/17 12:45 Prothrombin Time 11.6 SEC (9.30-11.50) H 12.2 SEC (9.30-11.50) H Prothromb Time International Ratio 1.1 (0.9-1.1) 1.2 (0.9-1.1) H Activated Partial Thromboplast Time 122 SEC (23-33) H 69 SEC (23-33) H Current Medications Medications (Trade) Dose Ordered Sig/Tatiana Route PRN Reason Start Time Stop Time Status Last Admin Dose Admin Acetaminophen (Tylenol) 650 mg Q4H PRN ORAL fever 03/14/17 19:30 04/13/17 19:29 03/15/17 05:07 Amitriptyline HCl (Elavil) 50 mg BEDTIME ORAL 03/14/17 21:00 04/13/17 20:59 03/20/17 20:53 Chlorhexidine Gluconate 1 applic 1 applic DAILY TOPIC 03/15/17 09:00 04/14/17 08:59 03/21/17 09:14 Dextrose (Dextrose 50%) STAT PRN IV Hypoglycemia 03/14/17 19:30 04/13/17 19:29 Ertapenem 1 gm/ Sodium Chloride 55 ml @ 110 mls/hr Q24H IVPB 03/17/17 14:00 04/20/17 13:59 03/20/17 14:56 Fentanyl (Duragesic) 1 patch Q72H TDERMAL 03/14/17 22:00 03/26/17 21:59 03/20/17 22:20 Gabapentin (Neurontin) 300 mg TID ORAL 03/14/17 21:00 04/13/17 20:59 03/21/17 09:14 Heparin Sodium/ Dextrose (Heparin) 500 ml @ 28.576 mls/ hr adjust per protocol IV 03/21/17 06:45 04/20/17 06:44 03/21/17 06:48 Lorazepam (Ativan) 0.5 mg Q6H PRN ORAL For Anxiety 03/14/17 20:30 03/21/17 20:29 Miscellaneous Medication (fentaNYL Destruction) 1 ea Q72H MISC 03/17/17 22:00 03/26/17 21:59 03/20/17 22:18 Naloxone HCl (Narcan) 0.1 mg PRN IV Sedation scale 3 or 4 03/14/17 22:00 03/26/17 21:59 Nitroglycerin (Ntg) 0.4 mg Q5MIN PRN SL Prn Chest Pain 03/14/17 19:30 04/13/17 19:29 Ondansetron HCl (Zofran) 4 mg Q6H PRN IVP Nausea & Vomiting 03/14/17 19:30 04/13/17 19:29 Oxycodone HCl (Roxicodone) 20 mg Q6H PRN ORAL For Breakthrough Pain 03/14/17 19:30 03/21/17 19:29 03/20/17 20:52 Polyethylene Glycol (Miralax) 17 gm DAILYPRN PRN ORAL Constipation 03/14/17 19:30 04/13/17 19:29 Temazepam (Restoril) 15 mg HSPRN PRN ORAL Insomnia 03/14/17 19:30 03/21/17 19:29 Vancomycin HCl (Vanco rx to dose) 1 ea DAILY PRN MISC PRN RX PROTOCOL 03/14/17 22:00 04/13/17 21:59 Vancomycin HCl/ Dextrose (Vancomycin 1.5gm/D5W 250ml) 250 ml @ 125 mls/hr Q12HR IVPB 03/18/17 09:00 03/23/17 08:59 03/21/17 09:15 Warfarin Sodium (Coumadin per pharmacy) 1 ea DAILY PRN MISC Per rx protocol 03/20/17 15:00 04/19/17 14:59 Warfarin Sodium 7.5 mg 7.5 mg COUMADIN ORAL 03/20/17 17:00 03/25/17 16:59 03/20/17 17:50 LUZ LOPEZ Mar 21, 2017 14:21
[2017-03-21] MEDS: Ertapenem 1 GM in NS 55 ML IVPB SCH (15:47)
--- NOTE | 2017-03-21 15:49 | Pulmonology Progress Note ---
Assessment/Plan Problems: (1) Osteomyelitis (2) DVT (deep venous thrombosis) (3) Cellulitis (4) UTI (urinary tract infection) (5) Sacral decubitus ulcer Assessment/Plan improving continue abx check cultures dvt, will start on heparin drip and coumadin surgical consult appreciated IV antibiotics for 42 days. Subjective ROS Limited/Unobtainable: No Allergies: Coded Allergies: SULFA (SULFONAMIDE ANTIBIOTICS) (Verified Allergy, Intermediate, 03/14/17) MORPHINE (Verified Adverse Reaction, Intermediate, GI UPSET AND SHAKES, 17/08) Uncoded Allergies: PAIN KILLER (Allergy, Mild, 06/17/12) CANNOT REMEMBER NAME OF PAIN KILLER Objective Last 24 Hour Vital Signs Date Time Temp Pulse Resp B/P Pulse Ox O2 Delivery O2 Flow Rate FiO2 03/21/17 11:43 97.6 84 21 107/65 97 Room Air 03/21/17 08:20 90 16 Room Air 03/21/17 08:03 97.3 82 20 102/73 97 Room Air 03/21/17 03:47 97.9 85 18 101/67 97 Room Air 03/21/17 00:00 97.9 87 20 100/66 96 Room Air 21 03/20/17 22:50 98.0 03/20/17 20:52 20 105/67 03/20/17 20:35 92 16 Room Air 21 03/20/17 20:00 98.0 90 20 97/60 100 Room Air 21 03/20/17 16:00 98.3 94 19 100/60 99 Room Air Intake and Output 03/20/17 03/21/17 19:00 07:00 Intake Total 647.910 ml 798.619 ml Output Total 1800 ml 1850 ml Balance -1152.090 ml -1051.381 ml Intake Oral 240 ml IV Total 647.910 ml 558.619 ml Output Urine Total 1800 ml 1850 ml Objective General Appearance: WD/WN HEENT: normocephalic Respiratory/Chest: chest wall non-tender, lungs clear Breasts: no masses Cardiovascular: normal peripheral pulses Abdomen: normal bowel sounds, soft, non tender Genitourinary: normal external genitalia Skin: no rash, extensive deep sacral decubiti Laboratory Tests 03/20/17 15:55: Prothrombin Time 11.6H, Prothromb Time International Ratio 1.1 03/21/17 04:20: Prothrombin Time 12.2H, Prothromb Time International Ratio 1.2H, Activated Partial Thromboplast Time 122H 03/21/17 12:45: Activated Partial Thromboplast Time 69H Current Medications Medications (Trade) Dose Ordered Sig/Tatiana Route PRN Reason Start Time Stop Time Status Last Admin Dose Admin Acetaminophen (Tylenol) 650 mg Q4H PRN ORAL fever 03/14/17 19:30 04/13/17 19:29 03/15/17 05:07 Amitriptyline HCl (Elavil) 50 mg BEDTIME ORAL 03/14/17 21:00 04/13/17 20:59 03/20/17 20:53 Chlorhexidine Gluconate 1 applic 1 applic DAILY TOPIC 03/15/17 09:00 04/14/17 08:59 03/21/17 09:14 Dextrose (Dextrose 50%) STAT PRN IV Hypoglycemia 03/14/17 19:30 04/13/17 19:29 Ertapenem 1 gm/ Sodium Chloride 55 ml @ 110 mls/hr Q24H IVPB 03/17/17 14:00 04/20/17 13:59 03/20/17 14:56 Fentanyl (Duragesic) 1 patch Q72H TDERMAL 03/14/17 22:00 03/26/17 21:59 03/20/17 22:20 Gabapentin (Neurontin) 300 mg TID ORAL 03/14/17 21:00 04/13/17 20:59 03/21/17 14:54 Heparin Sodium/ Dextrose (Heparin) 500 ml @ 28.576 mls/ hr adjust per protocol IV 03/21/17 06:45 04/20/17 06:44 03/21/17 06:48 Lorazepam (Ativan) 0.5 mg Q6H PRN ORAL For Anxiety 03/14/17 20:30 03/21/17 20:29 Miscellaneous Medication (fentaNYL Destruction) 1 ea Q72H MISC 03/17/17 22:00 03/26/17 21:59 03/20/17 22:18 Naloxone HCl (Narcan) 0.1 mg PRN IV Sedation scale 3 or 4 03/14/17 22:00 03/26/17 21:59 Nitroglycerin (Ntg) 0.4 mg Q5MIN PRN SL Prn Chest Pain 03/14/17 19:30 04/13/17 19:29 Ondansetron HCl (Zofran) 4 mg Q6H PRN IVP Nausea & Vomiting 03/14/17 19:30 04/13/17 19:29 Oxycodone HCl (Roxicodone) 20 mg Q6H PRN ORAL For Breakthrough Pain 03/14/17 19:30 03/21/17 19:29 03/20/17 20:52 Polyethylene Glycol (Miralax) 17 gm DAILYPRN PRN ORAL Constipation 03/14/17 19:30 04/13/17 19:29 Temazepam (Restoril) 15 mg HSPRN PRN ORAL Insomnia 03/14/17 19:30 03/21/17 19:29 Vancomycin HCl (Vanco rx to dose) 1 ea DAILY PRN MISC PRN RX PROTOCOL 03/14/17 22:00 04/13/17 21:59 Vancomycin HCl/ Dextrose (Vancomycin 1.5gm/D5W 250ml) 250 ml @ 125 mls/hr Q12HR IVPB 03/18/17 09:00 03/23/17 08:59 03/21/17 09:15 Warfarin Sodium (Coumadin per pharmacy) 1 ea DAILY PRN MISC Per rx protocol 03/20/17 15:00 04/19/17 14:59 Warfarin Sodium 7.5 mg 7.5 mg COUMADIN ORAL 03/20/17 17:00 03/25/17 16:59 03/20/17 17:50 NIKIA CAMPBELL Mar 21, 2017 15:49
[2017-03-21 16:15] VITALS: BP 98/67
[2017-03-21] MEDS: Warfarin Sodium 7.5mg ORAL SCH (17:13)
--- NOTE | 2017-03-21 18:08 | General Progress Note ---
Assessment/Plan Assessment/Plan #Deep venous thrombosis of the left leg femoral vein --> has been started on heparin drip and coumadin --> INR goal 2-3, continue to monitor #Osteomyelitis potential secondary to decubitus ulceration --> on abx per ID service # Stage 4 decubitis ulceration --> monitor wound --> being seen by gen surg, surgery is not needed # Cellulitis # Urinary tract infection # Multiple sclerosis Subjective Constitutional: Reports: no symptoms HEENT: Reports: no symptoms Cardiovascular: Reports: no symptoms Respiratory: Reports: no symptoms Gastrointestinal/Abdominal: Reports: no symptoms Genitourinary: Reports: no symptoms Neurologic/Psychiatric: Reports: no symptoms Endocrine: Reports: no symptoms Hematologic/Lymphatic: Reports: no symptoms Allergies: Coded Allergies: SULFA (SULFONAMIDE ANTIBIOTICS) (Verified Allergy, Intermediate, 03/14/17) MORPHINE (Verified Adverse Reaction, Intermediate, GI UPSET AND SHAKES, 17/08) Uncoded Allergies: PAIN KILLER (Allergy, Mild, 06/17/12) CANNOT REMEMBER NAME OF PAIN KILLER Subjective addl labs pending Objective Last 24 Hour Vital Signs Date Time Temp Pulse Resp B/P Pulse Ox O2 Delivery O2 Flow Rate FiO2 03/21/17 16:15 98.2 65 21 98/67 96 Room Air 03/21/17 11:43 97.6 84 21 107/65 97 Room Air 03/21/17 08:20 90 16 Room Air 03/21/17 08:03 97.3 82 20 102/73 97 Room Air 03/21/17 03:47 97.9 85 18 101/67 97 Room Air 03/21/17 00:00 97.9 87 20 100/66 96 Room Air 21 03/20/17 22:50 98.0 03/20/17 20:52 20 105/67 03/20/17 20:35 92 16 Room Air 21 03/20/17 20:00 98.0 90 20 97/60 100 Room Air 21 Intake and Output 03/20/17 03/21/17 19:00 07:00 Intake Total 647.910 ml 798.619 ml Output Total 1800 ml 1850 ml Balance -1152.090 ml -1051.381 ml Intake Oral 240 ml IV Total 647.910 ml 558.619 ml Output Urine Total 1800 ml 1850 ml Laboratory Tests 03/21/17 04:20: Prothrombin Time 12.2H, Prothromb Time International Ratio 1.2H, Activated Partial Thromboplast Time 122H 03/21/17 12:45: Activated Partial Thromboplast Time 69H Height (Feet): 5 Height (Inches): 9.00 Weight (Pounds): 210 General Appearance: no apparent distress EENT: PERRL/EOMI Neck: normal alignment Cardiovascular: regular rhythm Respiratory/Chest: lungs clear Edema: no edema noted Pedal (L), no edema noted Pedal (R) Neurologic: psychiatric registered nurse II-XII grossly normal Skin: warm/dry Amandeep Art Mar 21, 2017 18:08
[2017-03-21] MEDS: Lactulose 20gm/30ml UDC ORAL SCH (19:28)
[2017-03-21] MEDS: Docusate 100mg cap ORAL SCH (19:32)
[2017-03-21 19:50] VITALS: BP 115/72
[2017-03-21] MEDS ORDERED: Miralax 17gm pkt ORAL SCH (21:00)
[2017-03-22] VITALS: BP 103/72
[2017-03-22] MEDS ORDERED: oxyCODONE 5mg IR tab ORAL PRN ×2 (00:45→10:49)
[2017-03-22 04:00] VITALS: BP 122/75
[2017-03-22 05:04] LABS: INR 1.2 (0.9-1.1); PROTHROMBIN TIME 12.4 SEC (9.30-11.50)
[2017-03-22 08:00] VITALS: BP 107/73
[2017-03-22] MEDS: Vancomycin 1.5gm/D5W 250ml 250 ML IVPB SCH (08:31)
[2017-03-22] MEDS: Lactulose 20gm/30ml UDC ORAL SCH ×2 (08:31→13:09)
[2017-03-22] MEDS: Dyna-Hex 2% Top Sol 8oz TOPIC SCH (08:32)
[2017-03-22] MEDS: Docusate 100mg cap ORAL SCH ×2 (08:32→13:09)
[2017-03-22] MEDS ORDERED: Enoxaparin 100mg Inj SUBQ SCH (10:00)
--- NOTE | 2017-03-22 10:35 | Brief Operative Note ---
Immediate Post Operative Note Operative Note Pre-op Diagnosis: right anterior shoulder and left lateral hp soft tissue masses Procedure: excision of right anterior shoulder and left lateral hip soft tissue masses Post-op Diagnosis: same as pre-op Surgeon: sarah Anesthesiologist: mary Anesthesia: general Specimen: yes Complications: none Condition: stable Estimated Blood Loss: minimal Drains: none Implant(s) used?: No VENTURA PANTOJA Mar 22, 2017 10:35
[2017-03-22] MEDS ORDERED: Tylenol #3 tab (300mg/30mg) ORAL PRN (10:45)
[2017-03-22 12:00] VITALS: BP 110/61
[2017-03-22 12:50] LABS: OTHERS PATHOLOGIST COMMENT
--- NOTE | 2017-03-22 12:53 | Infectious Diseases Prog Note ---
Assessment/Plan Assessment/Plan ASSESSMENT: 51 y/o female with: // Chronic sacrococcygeal osteomyelitis - WCx 4+ ESBL(+) E.coli, diptheroids // Stage IV sacral decubitus ulcer POA - seen by surgery not planning any debridement or flap // Leukocytosis - resolved, afebrile // Multiple sclerosis // Acute LLE DVT, on coumadin // Bedbound // NH resident // Sulfa allergy // DNR, hospice PLAN: - continue IV vancomycin, invanz ABX d# - weekly CBC, CMP, ESR, CRP while on IV ABX - f/u cultures - wound care Subjective Allergies: Coded Allergies: SULFA (SULFONAMIDE ANTIBIOTICS) (Verified Allergy, Intermediate, 03/14/17) MORPHINE (Verified Adverse Reaction, Intermediate, GI UPSET AND SHAKES, 17/08) Uncoded Allergies: PAIN KILLER (Allergy, Mild, 06/17/12) CANNOT REMEMBER NAME OF PAIN KILLER Subjective remains afebrile no new complaint DC planning ongoing Objective Vital Signs Last 24 Hour Vital Signs Date Time Temp Pulse Resp B/P Pulse Ox O2 Delivery O2 Flow Rate FiO2 03/22/17 08:00 97.9 77 20 107/73 95 Room Air 03/22/17 04:00 98.2 73 20 122/75 98 Nasal Cannula 03/22/17 00:00 98.1 83 20 103/72 93 Room Air 03/21/17 19:50 98.1 84 20 115/72 97 Room Air 03/21/17 16:15 98.2 65 21 98/67 96 Room Air Height (Feet): 5 Height (Inches): 9.00 Weight (Pounds): 210 General Appearance: no acute distress Respiratory/Chest: no respiratory distress Cardiovascular: normal rate, regular rhythm Abdomen: normal bowel sounds, soft, non tender, non distended Laboratory Tests Test 03/22/17 04:20 Prothrombin Time 12.4 SEC (9.30-11.50) H Prothromb Time International Ratio 1.2 (0.9-1.1) H Activated Partial Thromboplast Time 91 SEC (23-33) H Current Medications Medications (Trade) Dose Ordered Sig/Tatiana Route PRN Reason Start Time Stop Time Status Last Admin Dose Admin Acetaminophen (Tylenol) 650 mg Q4H PRN ORAL fever 03/14/17 19:30 04/13/17 19:29 03/15/17 05:07 Acetaminophen/ Codeine Phosphate (Tylenol #3) 1 tab Q4H PRN ORAL MODERATE BREAKTHROUGH PAIN 03/22/17 10:45 03/29/17 10:44 Amitriptyline HCl (Elavil) 50 mg BEDTIME ORAL 03/14/17 21:00 04/13/17 20:59 03/21/17 22:06 Chlorhexidine Gluconate 1 applic 1 applic DAILY TOPIC 03/15/17 09:00 04/14/17 08:59 03/22/17 08:32 Dextrose (Dextrose 50%) STAT PRN IV Hypoglycemia 03/14/17 19:30 04/13/17 19:29 Docusate Sodium (Colace) 100 mg THREE TIMES A DAY ORAL 03/21/17 19:15 04/20/17 19:14 03/22/17 08:32 Enoxaparin Sodium (Lovenox) 100 mg EVERY 12 HOURS SUBQ 03/22/17 10:00 04/21/17 09:59 03/22/17 09:39 Ertapenem 1 gm/ Sodium Chloride 55 ml @ 110 mls/hr Q24H IVPB 03/17/17 14:00 04/20/17 13:59 03/21/17 15:47 Fentanyl (Duragesic) 1 patch Q72H TDERMAL 03/14/17 22:00 03/26/17 21:59 03/20/17 22:20 Gabapentin (Neurontin) 300 mg TID ORAL 03/14/17 21:00 04/13/17 20:59 03/22/17 08:31 Lactulose (Cephulac) 30 gm THREE TIMES A DAY ORAL 03/21/17 19:15 04/20/17 19:14 03/22/17 08:31 Mineral Oil (Fleet's Mineral Oil Enema) 133 ml EVERY OTHER DAY RECTAL 03/23/17 09:00 04/22/17 08:59 Miscellaneous Medication (fentaNYL Destruction) 1 ea Q72H MISC 03/17/17 22:00 03/26/17 21:59 03/20/17 22:18 Naloxone HCl (Narcan) 0.1 mg PRN IV Sedation scale 3 or 4 03/14/17 22:00 03/26/17 21:59 Nitroglycerin (Ntg) 0.4 mg Q5MIN PRN SL Prn Chest Pain 03/14/17 19:30 04/13/17 19:29 Ondansetron HCl (Zofran) 4 mg Q6H PRN IVP Nausea & Vomiting 03/22/17 10:45 04/21/17 10:44 Oxycodone HCl (Roxicodone) 20 mg Q6H PRN ORAL SEVERE BREAKTHROUGH PAIN 03/22/17 10:49 03/29/17 00:44 Polyethylene Glycol (Miralax) 17 gm BEDTIME ORAL 03/21/17 21:00 04/20/17 20:59 03/21/17 22:09 Polyethylene Glycol (Miralax) 17 gm DAILYPRN PRN ORAL Constipation 03/14/17 19:30 04/13/17 19:29 03/21/17 17:50 Sennosides (Senokot) 8.6 mg DAILY ORAL 03/21/17 18:45 04/20/17 18:44 03/22/17 08:34 Vancomycin HCl (Vanco rx to dose) 1 ea DAILY PRN MISC PRN RX PROTOCOL 03/14/17 22:00 04/13/17 21:59 Vancomycin HCl/ Dextrose (Vancomycin 1.5gm/D5W 250ml) 250 ml @ 125 mls/hr Q12HR IVPB 03/18/17 09:00 03/23/17 08:59 03/22/17 08:31 Warfarin Sodium (Coumadin per pharmacy) 1 ea DAILY PRN MISC Per rx protocol 03/20/17 15:00 04/19/17 14:59 Warfarin Sodium (Coumadin) 7.5 mg COUMADIN ORAL 03/20/17 17:00 03/25/17 16:59 03/21/17 17:13 LUZ LOPEZ Mar 22, 2017 12:53
[2017-03-22] MEDS ORDERED: INVANZ1 GM IVPB (12:59)
[2017-03-22] MEDS ORDERED: VANCOMYCIN1 GM/2502 IVPB (13:00)
[2017-03-22] MEDS: Ertapenem 1 GM in NS 55 ML IVPB SCH (13:12)
[2017-03-22] MEDS ORDERED: LOVENOX10 M3 SUBQ (13:48)
[2017-03-22 16:00] VITALS: BP 117/73
[2017-03-22 16:21] LABS: ANTI THROMBIN III ACTIVITY 70 % (75-135)
--- NOTE | 2017-03-22 18:17 | General Progress Note ---
Assessment/Plan Assessment/Plan #Deep venous thrombosis of the left leg femoral vein --> has been started on heparin drip and coumadin --> INR goal 2-3, continue to monitor #Osteomyelitis potential secondary to decubitus ulceration --> on abx per ID service # Stage 4 decubitis ulceration --> monitor wound --> being seen by gen surg, surgery is not needed # Cellulitis # Urinary tract infection # Multiple sclerosis Subjective Constitutional: Reports: no symptoms HEENT: Reports: no symptoms Cardiovascular: Reports: no symptoms Respiratory: Reports: no symptoms Gastrointestinal/Abdominal: Reports: no symptoms Genitourinary: Reports: no symptoms Neurologic/Psychiatric: Reports: no symptoms Endocrine: Reports: no symptoms Hematologic/Lymphatic: Reports: anemia Allergies: Coded Allergies: SULFA (SULFONAMIDE ANTIBIOTICS) (Verified Allergy, Intermediate, 03/14/17) MORPHINE (Verified Adverse Reaction, Intermediate, GI UPSET AND SHAKES, 17/08) Uncoded Allergies: PAIN KILLER (Allergy, Mild, 06/17/12) CANNOT REMEMBER NAME OF PAIN KILLER Subjective pt is to be dc today Objective Last 24 Hour Vital Signs Date Time Temp Pulse Resp B/P Pulse Ox O2 Delivery O2 Flow Rate FiO2 03/22/17 16:00 98.3 20 117/73 97 Room Air 03/22/17 12:00 97.9 20 20 110/61 97 Room Air 03/22/17 08:00 97.9 77 20 107/73 95 Room Air 03/22/17 04:00 98.2 73 20 122/75 98 Nasal Cannula 03/22/17 00:00 98.1 83 20 103/72 93 Room Air 03/21/17 19:50 98.1 84 20 115/72 97 Room Air Intake and Output 03/21/17 03/22/17 19:00 07:00 Intake Total 1848.092 ml 564.336 ml Output Total 800 ml 1700 ml Balance 1048.092 ml -1135.664 ml Intake Oral 1200 ml IV Total 648.092 ml 564.336 ml Output Urine Total 800 ml 1700 ml Laboratory Tests 03/22/17 04:20: Prothrombin Time 12.4H, Prothromb Time International Ratio 1.2H, Activated Partial Thromboplast Time 91H Height (Feet): 5 Height (Inches): 9.00 Weight (Pounds): 210 General Appearance: no apparent distress EENT: normal ENT inspection Neck: normal alignment Cardiovascular: normal peripheral pulses Respiratory/Chest: lungs clear Extremities: normal range of motion Edema: no edema noted Pedal (L), no edema noted Pedal (R) Skin: warm/dry Amandeep Art Mar 22, 2017 18:16
--- NOTE | 2017-03-22 22:36 | Pulmonology Progress Note ---
Assessment/Plan Problems: (1) Osteomyelitis (2) DVT (deep venous thrombosis) (3) Cellulitis (4) UTI (urinary tract infection) (5) Sacral decubitus ulcer Assessment/Plan improving continue abx check cultures dvt, will start on heparin drip and coumadin surgical consult appreciated IV antibiotics for 42 days. Subjective ROS Limited/Unobtainable: No Constitutional: Reports: no symptoms HEENT: Repors: no symptoms Allergies: Coded Allergies: SULFA (SULFONAMIDE ANTIBIOTICS) (Verified Allergy, Intermediate, 03/14/17) MORPHINE (Verified Adverse Reaction, Intermediate, GI UPSET AND SHAKES, 17/08) Uncoded Allergies: PAIN KILLER (Allergy, Mild, 06/17/12) CANNOT REMEMBER NAME OF PAIN KILLER Objective Last 24 Hour Vital Signs Date Time Temp Pulse Resp B/P Pulse Ox O2 Delivery O2 Flow Rate FiO2 03/22/17 16:00 98.3 20 117/73 97 Room Air 03/22/17 12:00 97.9 20 20 110/61 97 Room Air 03/22/17 08:00 97.9 77 20 107/73 95 Room Air 03/22/17 04:00 98.2 73 20 122/75 98 Nasal Cannula 03/22/17 00:00 98.1 83 20 103/72 93 Room Air Intake and Output 03/21/17 03/22/17 19:00 07:00 Intake Total 1848.092 ml 564.336 ml Output Total 800 ml 1700 ml Balance 1048.092 ml -1135.664 ml Intake Oral 1200 ml IV Total 648.092 ml 564.336 ml Output Urine Total 800 ml 1700 ml Objective General Appearance: WD/WN HEENT: normocephalic Respiratory/Chest: chest wall non-tender, lungs clear Breasts: no masses Cardiovascular: normal peripheral pulses Abdomen: normal bowel sounds, soft, non tender Genitourinary: normal external genitalia Skin: no rash, extensive deep sacral decubiti Laboratory Tests 03/22/17 04:20: Prothrombin Time 12.4H, Prothromb Time International Ratio 1.2H, Activated Partial Thromboplast Time 91H NIKIA CAMPBELL Mar 22, 2017 22:36
[2017-03-23] MEDS ORDERED: Fleet's Mineral Oil Enema RECTAL SCH (09:00)
--- NOTE | 2017-03-23 19:28 | Discharge Summary ---
Discharge Summary Hospital Course Date of Admission Mar 14, 2017 at 18:39 Date of Discharge Mar 22, 2017 at 18:35 Admitting Diagnosis UTI,SACRAL OSTEOMYELITIS HPI Sharita Whalen is a 51 year old female who was admitted on Mar 14, 2017 at 18: 39 for Urinary Tract Infection,Sacral Osteomyelitis Hospital Course [id number] Discharge Discharge Disposition Patient was discharged to snf with hospice Discharge Diagnoses: Zonia Garcia NP Mar 23, 2017 19:28
--- NOTE | 2017-03-24 06:16 | Discharge Summary 2 SIG ---
DATE OF ADMISSION: 03/14/2017 DATE OF DISCHARGE: 03/22/2017 CONSULTANTS: 1. Vidal Alcantara M.D. 2. Bryan Richardson M.D. BRIEF HOSPITAL COURSE: The patient is a 51-year-old female with multiple sclerosis for seven years who is bedbound, custodial resident, presented to the hospital complaining of left-sided abdominal pain for two days and also had multiple bowel movements but denied diarrhea. Denied dysuria. On evaluation at ED, WBC was elevated to 13.8. CT of the abdomen and pelvis showed findings consistent with decubitus ulceration of the retrosacral region with evidence of bone destruction in the sacral coccygeal junction, suspicious for osteomyelitis. There was no acute intraabdominal finding. PICC line was inserted to the right arm. She was started on cefepime and vancomycin and was given daily wound care treatment. She underwent surgical evaluation. The patient has a deep stage IV sacral decubitus with good granulation tissue. There was no area that required debridement and no acute surgical intervention was necessary. Wound cultures showed growth of ESBL and E. coli. Cefepime was changed to Invanz. The patient will need 42 days of IV antibiotic. She underwent venous duplex of lower extremity that showed the acute thrombus in the left leg. She was started on heparin and Coumadin. She was eventually discharged to a SNF to follow up with police or patrol park officer in a week. DISPOSITION: The patient was discharged to [facility] with [facility]. DISCHARGE MEDICATIONS: Please refer to med list. FINAL DIAGNOSES: 1. Acute osteomyelitis of the sacral wound of the sacrum. 2. Acute deep venous thrombosis of the left leg. 3. Cellulitis. 4. Urinary tract infection. 5. Sacral decubitus ulcer stage IV, present on admission. 6. Multiple sclerosis. 7. Bedbound custodial resident. 8. Do Not Resuscitate and hospice patient. Morena Jorgensen M.D. I have been assigned to dictate discharge summary on this account and I was not involved in the patient's management. Zonia Garcia N.P. DR: Alex JOB#: [id number] CC: KURT
== END 2017-03-22 18:35 | DRG 344 ==
LOC: EDBD 13:51 → EMR 15:00 → 4E 18:39 → EDBEDREQ 19:45
PROC: 02HV33Z Insertion of Infusion Device into Superior Vena Cava, Percutaneous Approach (ICD-10-PCS; principal; 2017-03-14)
DX: M46.28 Osteomyelitis of vertebra, sacral and sacrococcygeal region (principal); L89.154 Pressure ulcer of sacral region, stage 4; I82.412 Acute embolism and thrombosis of left femoral vein; N39.0 Urinary tract infection, site not specified; L03.90 Cellulitis, unspecified; Z88.6 Allergy status to analgesic agent; Z88.2 Allergy status to sulfonamides; G35 Multiple sclerosis; Z66 Do not resuscitate; K21.9 Gastro-esophageal reflux disease without esophagitis
CPT/HCPCS: 36415; 36569; 74177; 76937; 80053; 80202; 81003; 81241; 82105; 82140; 82378; 83690; 83735; 84100; 85007; 85025; 85060; 85300; 85610; 85613; 85730; 86300; 86301; 86304; 87070; 87081; 87181; 87205; 93970; 94664